=== PATIENT | male | born 1950 | race Caucasian/White ===

== ENCOUNTER 2019-04-24 18:20 | Inpatient (IN) | payer OTHER, MEDICARE ==
[2019-04-24 18:55] LABS: HEMATOCRIT 31.7 % (37.9-51.0); HEMOGLOBIN 11.4 g/dL (13.5-17.0); MEAN CORPUSCULAR HEMOGLOBIN 31.8 pg (27.0-33.4); MEAN CORPUSCULAR VOLUME 88 fl (80-97); PLATELET COUNT 293 10^3/uL (150-450); RED BLOOD COUNT 3.59 10^6/uL (4.35-5.55); RED CELL DISTRIBUTION WIDTH 13.3 % (11.5-14.0); WHITE BLOOD COUNT 9.1 10^3/uL (4.0-10.5)
[2019-04-24] MEDS ORDERED: NORMAL SALINE 1000 ML 1,000 ML IV ONE (18:56)
--- NOTE | 2019-04-24 19:10 | ER Document Report ---
ED General - General Chief Complaint: Abdominal Pain >50 Stated Complaint: ABDOMINAL PAIN Time Seen by Provider: 04/24/19 18:25 Notes: Patient is a 68-year-old male who denies chronic medical problems, no prior abdominal surgical history, presents complaining of 4 days without having a bowel movement with increasing abdominal distention and discomfort. Patient states that he had some nausea and nonbilious vomiting most recently this mornin g but has been able to tolerate fluid intake in between those episodes of vomiting. Describes his abdominal discomfort as being a fullness, cramping, diffuse discomfort to the entirety of his abdomen. States that it started gradually and has been progressively worsening since onset. Nothing seems to improve or worsen this pain or his symptoms of nausea and vomiting. He denies any history of similar symptoms in the past. States that he usually has a bowel movement every day. He has not had fever or constitutional symptoms. He has not seen his primary care physician regarding today's concerns. - Related Data Allergies/Adverse Reactions: No Known Allergies Allergy (Verified 04/24/19 18:33) Past Medical History - General Information source: Patient - Social History Smoking Status: Never Smoker Frequency of alcohol use: None Drug Abuse: None Lives with: Alone Family History: Reviewed & Not Pertinent Review of Systems - Review of Systems Notes: Constitutional: Negative for fever. HENT: Negative for sore throat. Eyes: Negative for visual changes. Cardiovascular: Negative for chest pain. Respiratory: Negative for shortness of breath. Gastrointestinal: Positive for abdominal pain, vomiting, absence of bowel movement Genitourinary: Negative for dysuria. Musculoskeletal: Negative for back pain. Skin: Negative for rash. Neurological: Negative for headaches, weakness or numbness. 10 point ROS negative except as marked above and in HPI. Physical Exam - Vital signs Vitals: Temp Pulse Resp BP Pulse Ox 98.9 F 80 18 159/69 H 94 04/24/19 18:21 04/24/19 18:21 04/24/19 18:21 04/24/19 18:21 04/24/19 18:21 Interpretation: Hypertensive Notes: PHYSICAL EXAMINATION: GENERAL: Appears moderately uncomfortable but in no acute distress HEAD: Atraumatic, normocephalic. EYES: Pupils equal round and reactive to light, extraocular movements intact, sclera anicteric, conjunctiva are normal. ENT: nares patent, oropharynx clear without exudates. Moderately dry mucous membranes. NECK: Normal range of motion, supple without lymphadenopathy LUNGS: Breath sounds clear to auscultation bilaterally and equal. No wheezes rales or rhonchi. HEART: Regular rate and rhythm without murmurs ABDOMEN: Distended, protuberant abdomen with diffuse tympany. Mild diffuse tenderness on palpation but no localization to any one quadrant. No rebound or guarding. EXTREMITIES: Normal range of motion, no pitting or edema. No cyanosis. NEUROLOGICAL: No focal neurological deficits. Moves all extremities spontaneously and on command. PSYCH: Normal mood, normal affect. SKIN: Warm, Dry, normal turgor, no rashes or lesions noted. Course - Re-evaluation Re-evalutation: 04/24/19 19:09 Presentation is concerning for possible small bowel obstruction, ileus, versus constipation. The patient has tympany on abdominal exam with some global discomfort on palpation although no areas of rigidity, rebound or guarding. The patient has had some nausea and vomiting although apparently this is not bilious or feculent. Has been able to tolerate oral intake between these episodes of abdominal distention. Patient has no reason to have a bowel obstruction as he has no prior abdominal surgical history, has no visible hernia on exam. This could be an ileus pattern secondary to severe constipation versus isolated constipation. Patient has no fever, vitals are within normal's with exception of hypertension. Very low clinical suspicion for more serious pathology such as appendicitis, ileus, and do not clinically suspect atypical presentation of ACS. Will obtain abdominal x-ray 2 views, labs, provide IV hydration and reassess. 04/24/19 20:36 Patient's laboratories show severe hyponatremia, hypokalemia, lipase elevation. Abdominal two-view x-ray does demonstrate findings consistent with bowel obstruction, possible free air. Patient's abdominal exam is unchanged on repeat assessment. CT scan of the abdomen and pelvis is pending. The patient is receiving potassium repletion as well as magnesium repletion as his potassium is critically low at 2.3. EKG is pending. Will not provide any additional fluids as I suspect that the patient's hyponatremia is likely is delusional from heavy beer consumption. The patient initially stated to me that he had only drank 1 beer daily although I suspect that this is quite untrue given his labs. Will continue to monitor very closely. Patient is in guarded condition. 04/25/19 00:55 Has been reassessed. Remains neurologically intact. No seizures. NG tube has been placed. Patient's CT scan does show prominent bowel obstruction. I have discussed this case with Dr. Baldwin as well as Dr. Acuna given that the patient has both medical as well as surgical concerns. Patient will be admitted to the ICU under Dr. Acuna's care with Dr. Baldwin consulting. - Vital Signs Vital signs: Temp Pulse Resp BP Pulse Ox 98.4 F 82 20 164/63 H 96 04/25/19 03:48 04/25/19 03:48 04/25/19 03:48 04/25/19 03:48 04/25/19 03:48 - Laboratory Result Diagrams: 04/24/19 18:40 04/25/19 01:45 Laboratory results interpreted by me: 04/24/19 04/24/19 04/24/19 18:40 18:40 18:40 RBC 3.59 L Hgb 11.4 L Hct 31.7 L Seg Neuts % (Manual) 89 H Lymphocytes % (Manual) 4 L Abs Lymphs (Manual) 0.4 L VBG pH Sodium 119.9 L* Potassium 2.3 L* Chloride 71 L Carbon Dioxide 31 H Glucose 113 H Magnesium 1.1 L* Total Bilirubin 1.6 H Direct Bilirubin 0.8 H AST 74 H Lipase 2260.9 H 04/24/19 21:00 RBC Hgb Hct Seg Neuts % (Manual) Lymphocytes % (Manual) Abs Lymphs (Manual) VBG pH 7.46 H Sodium Potassium Chloride Carbon Dioxide Glucose Magnesium Total Bilirubin Direct Bilirubin AST Lipase - Diagnostic Test Radiology reviewed: Reports reviewed - EKG Interpretation by Me Additional EKG results interpreted by me: 04/25/19 04:24 Sinus rhythm, rate 74. No ST elevations or depressions. QTC is 386. Critical Care Note - Critical Care Note Total time excluding time spent on procedures (mins): 36 Comments: Critical care time spent obtaining history from patient or surrogate, di scussions with consultants, development of treatment plan with patient or surrogate, evaluation of patient's response to treatment, examination of patient, ordering and performing treatments and interventions, ordering and review of laboratory studies, re-evaluation of patient's condition, ordering and review of radiographic studies and review of old charts Discharge - Discharge Clinical Impression: Hyponatremia, Hypokalemia, Hypomagnesemia, Small bowel obstruction Condition: Fair Disposition: ADMITTED INPATIENT Admitting Provider: Armand (Hospitalist) Unit Admitted: ICU
[2019-04-24 19:15] LABS: ALANINE AMINOTRANSFERASE 34 U/L (21-72); ALBUMIN 4.3 g/dL (3.5-5.0); ALKALINE PHOSPHATASE 39 U/L (38-126); ANION GAP 18 (5-19); ASPARTATE AMINO TRANSFERASE 74 U/L (17-59); BILIRUBIN,DIRECT 0.8 mg/dL (0.0-0.4); BILIRUBIN,TOTAL 1.6 mg/dL (0.2-1.3); BLOOD UREA NITROGEN 16 mg/dL (7-20); CALCIUM 8.7 mg/dL (8.4-10.2); CARBON DIOXIDE 31 mmol/L (22-30); CHLORIDE 71 mmol/L (98-107); GLUCOSE 113 mg/dL (75-110); TOTAL PROTEIN 6.9 g/dL (6.3-8.2)
[2019-04-24 19:24] LABS: LIPASE 2260.9 U/L (23-300)
[2019-04-24 19:27] LABS: ABSOLUTE LYMPHOCYTES# (MANUAL) 0.4 10^3/uL (0.5-4.7); ABSOLUTE MONOCYTES # (MANUAL) 0.6 10^3/uL (0.1-1.4); ABSOLUTE NEUTROPHILS# (MANUAL) 8.1 10^3/uL (1.7-8.2); BASOPHILS % (MANUAL) 0 % (0-2); EOSINOPHILS % (MANUAL) 0 % (0-6); LYMPHOCYTES % (MANUAL) 4 % (13-45); MONOCYTES % (MANUAL) 7 % (3-13); SEGMENTED NEUTROPHILS % (MAN) 89 % (42-78); TOTAL CELLS COUNTED 100
[2019-04-24 19:28] LABS: PLATELET COMMENT ADEQUATE; POTASSIUM 2.3 mmol/L (3.6-5.0); SODIUM 119.9 mmol/L (137-145)
[2019-04-24 19:29] LABS: STOMATOCYTES SLIGHT
--- NOTE | 2019-04-24 20:04 | RADIOLOGY REPORT (SQ) ---
EXAM DESCRIPTION: ABDOMEN 2 VIEWS COMPLETED DATE/TIME: 04/24/2019 7:48 pm REASON FOR STUDY: eval obstruction COMPARISON: None. NUMBER OF VIEWS: Two views. TECHNIQUE: Supine and erect/decubitus radiographic images of the abdomen acquired. LIMITATIONS: None. FINDINGS: FREE AIR: There is a subtle continuous diaphragm sign concerning for pneumoperitoneum. LUNG BASES: Clear. BOWEL GAS PATTERN: Diffusely distended small bowel, without definite colonic gas identified. The lar gest loops measure 4.7 cm in caliber. CALCIFICATIONS: No suspicious calcifications. SOFT TISSUES: No gross mass or suggestion of organomegaly. HARDWARE: None in the abdomen. BONES: No acute fracture. No worrisome bone lesions. OTHER: No other significant finding. IMPRESSION: 1. Diffusely distended small bowel, without definite colonic gas identified. The larges t loops measure 4.7 cm in caliber. Findings are consistent with stated clinical concern for obstruct ion. 2. There is a subtle continuous diaphragm sign on erect radiographs concerning for pneumoperitoneum. Consider CT to evaluate if there is no explanation for intra-abdominal free air such as recent surg viktoria. TECHNICAL DOCUMENTATION: JOB ID: [id number] [employer]- All Rights Reserved Reading location - IP/workstation name: [email or web address]
[2019-04-24] MEDS ORDERED: METOCLOPRAMIDE HCL INJ/PF 10 MG/2 ML SDV IV ONE (20:10)
[2019-04-24] MEDS: POTASSI CL 20 MEQ/50 ML RIDER 20 MEQ/50 ML RTUPB IV SCH ×2 (20:58→22:31)
[2019-04-24] MEDS: MAGNESIUM SULFATE/D5W 1 GM/100 ML RTUPB IV SCH ×2 (21:06→22:36)
[2019-04-24 21:26] LABS: ALCOHOL < 10 mg/dL (NONE DETECTED)
[2019-04-24 21:45] LABS: VENOUS BLOOD BASE EXCESS 6.1 mmol/L; VENOUS BLOOD HCO3 30.5 mmol/L (20-32); VENOUS BLOOD PCO2 43.8 mmHg (35-63); VENOUS BLOOD PH 7.46 (7.30-7.42)
--- NOTE | 2019-04-24 23:40 | RADIOLOGY REPORT (SQ) ---
EXAM DESCRIPTION: CT ABDOMEN PELVIS WITH IV CONTRAST COMPLETED DATE/TME: 04/24/2019 00:00 CLINICAL HISTORY: Diffuse abdominal pain. Distended bowel on comparison radiograph. COMPARISON: 04/24/2019 TECHNIQUE: CT of the abdomen and pelvis performed following IV administration of 77 mL of Omnipaque 350. DLP: 1048.3 mGycm FINDINGS: Lung Bases: The visualized lung bases are clear. Centrilobular emphysematous changes. Coronary artery atherosclerosis. Bones: Generative endplate spondylosis throughout the visualized thoracic and lumbar spine. Abdomen: Liver: The liver has normal size and density. No intrahepatic mass or biliary dilatation. Gallbladder: No calcified gallstones. Spleen, Pancreas, and Adrenal Glands: The spleen, pancreas, and adrenal glands are unremarkable. Kidneys: The kidneys have normal size and contour without evidence of solid mass or hydronephrosis. Vasculature: Aortoiliac atherosclerosis. IVC is unremarkable. The portal vein is patent. The proximal visceral and renal arteries are patent. Stomach: The stomach is distended. Other: No free intraperitoneal air. Small amount of free fluid. Pelvis: Bladder: Urinary bladder is unremarkable. Bowel: Diffuse dilation of the small bowel with small bowel wall thickening. The distal small bowel is decompressed. The transition point is not well identified however it is likely right mid abdominal region. Appendix: Normal appendix. Pelvis: Prostate is not enlarged. IMPRESSION: 1. Findings compatible with mechanical small bowel obstruction. The transition point is not definitely identified however it likely in the right mid abdomen. 2. Small amount of free fluid. 3. Centrilobular emphysematous change in the visualized lung bases. This exam was performed according to our departmental dose-optimization program, which includes automated exposure control, adjustment of the mA and/or kV according to patient size and/or use of iterative reconstruction technique.
[2019-04-24] MEDS ORDERED: MIDAZOLAM 2 MG/2 ML INJ IV ONE (23:52)
[2019-04-24] MEDS ORDERED: LIDOCAINE 1% INJ-PF (10 MG/ML) 30 ML SDV NEB ONE (23:53)
[2019-04-25] MEDS: POTASSI CL 20 MEQ/50 ML RIDER 20 MEQ/50 ML RTUPB IV SCH ×7 (00:07→20:36)
[2019-04-25] MEDS ORDERED: MAGNESIUM SULFATE/D5W 1 GM/100 ML RTUPB IV ONE (00:43)
[2019-04-25] MEDS ORDERED: THIAMINE HCL INJ 200 MG/2 ML VIAL IV PRN (00:46)
[2019-04-25] MEDS ORDERED: FOLIC ACID INJ 5 MG/1 ML 10 ML VIAL IV PRN (00:47)
[2019-04-25] MEDS ORDERED: THIAMINE HCL 100 MG, FOLIC ACID 1 MG in NORMAL SALINE 250 ML IV SCH (01:00)
--- NOTE | 2019-04-25 01:11 | PDOC CONSULTATION ---
Consultation Consult Date: 04/25/19 Attending physician:: HAILEY BARCENAS Provider Consulted: ELROY ROWE Consult reason:: Partial small bowel obstruction History of Present Illness Admission Date/PCP: [facility] History of Present Illness: ARDEN CAMP is a 68 year old male Presents emergency department via ground rescue complaining of 4-day history of abdominal pain, nausea vomiting bilious material, decreased urine output and decreased stool. Patient drinks alcohol daily. He receives his medical care from the [facility]. He is disabled due to PTSD. He is never had abdominal surgery or any other operative interventions. He was seen in the emergency department where he was found to have distended abdomen and profoundly abnormal electrolytes. CT scan of the abdomen and pelvis showed findings consistent with a small bowel obstruction but no transition point. Nasogastric tube was inserted, and during the process the patient vomited several liters of gastric contents, nonbloody. Patient was seen by Dr. Larry Acuna the hospitalist, and admitted to the hospitalist service. Surgery was consulted. Patient's last colonoscopy was in the last 2 years, no pathologic findings. He states he feels better after nasogastric decompression. Past Medical History Past Medical History: Hypertension, alcoholism, COPD, smoking abuse, PTSD, depression Cardiac Medical History: Reports: Hypertension Pulmonary Medical History: Reports: Chronic Obstructive Pulmonary Disease (COPD) Past Surgical History Past Surgical History: Reports: None Social History Lives with: Alone Smoking Status: Never Smoker Frequency of Alcohol Use: Heavy Family History Family History: Reviewed & Not Pertinent Parental Family History Reviewed: Yes Children Family History Reviewed: Yes Sibling(s) Family History Reviewed.: Yes Medication/Allergy Allergies/Adverse Reactions: No Known Allergies Allergy (Verified 04/24/19 18:33) Review of Systems Constitutional: PRESENT: as per HPI Ears: ABSENT: hearing changes Cardiovascular: ABSENT: chest pain, dyspnea on exertion, edema, orthropnea, palpitations Genitourinary: PRESENT: as per HPI Musculoskeletal: PRESENT: back pain Physical Exam Vital Signs: Temp Pulse Resp BP Pulse Ox 98.9 F 80 19 171/77 H 92 04/24/19 18:21 04/24/19 18:21 04/24/19 23:13 04/24/19 23:13 04/24/19 23:13 Intake & Output 04/23/19 04/24/19 04/25/19 06:59 06:59 06:59 Intake Total 1200 Balance 1200 Weight 67.4 kg General appearance: PRESENT: disheveled Head exam: PRESENT: normocephalic Eye exam: PRESENT: EOMI Mouth exam: PRESENT: dry mucosa Neck exam: PRESENT: full ROM Respiratory exam: PRESENT: tachypnea Cardiovascular exam: PRESENT: RRR Pulses: PRESENT: normal carotid pulses, normal radial pulses GI/Abdominal exam: PRESENT: other - Distended, mildly tympanitic, no rigidity no guarding no hernias Rectal exam: PRESENT: deferred Extremities exam: PRESENT: full ROM Musculoskeletal exam: PRESENT: full ROM Neurological exam: PRESENT: alert, awake, oriented to person, oriented to place, oriented to time, oriented to situation Psychiatric exam: PRESENT: anxious, appropriate affect Results Laboratory Results: 04/24/19 18:40 04/24/19 18:40 04/24/19 04/24/19 04/24/19 18:40 18:40 18:40 WBC 9.1 RBC 3.59 L Hgb 11.4 L Hct 31.7 L MCV 88 MCH 31.8 MCHC 36.0 RDW 13.3 Plt Count 293 Seg Neutrophils % Not Reportable Lymphocytes % Not Reportable Monocytes % Not Reportable Eosinophils % Not Reportable Basophils % Not Reportable Absolute Neutrophils Not Reportable Absolute Lymphocytes Not Reportable Absolute Monocytes Not Reportable Absolute Eosinophils Not Reportable Absolute Basophils Not Reportable VBG pH VBG pCO2 VBG HCO3 VBG Base Excess Sodium 119.9 L* Potassium 2.3 L* Chloride 71 L Carbon Dioxide 31 H Anion Gap 18 BUN 16 Creatinine 0.94 Est GFR ( Amer) > 60 Est GFR (Non-Af Amer) > 60 Glucose 113 H Lactic Acid Calcium 8.7 Magnesium 1.1 L* Total Bilirubin 1.6 H AST 74 H ALT 34 Alkaline Phosphatase 39 Total Protein 6.9 Albumin 4.3 Lipase 2260.9 H 04/24/19 04/24/19 21:00 21:00 WBC RBC Hgb Hct MCV MCH MCHC RDW Plt Count Seg Neutrophils % Lymphocytes % Monocytes % Eosinophils % Basophils % Absolute Neutrophils Absolute Lymphocytes Absolute Monocytes Absolute Eosinophils Absolute Basophils VBG pH 7.46 H VBG pCO2 43.8 VBG HCO3 30.5 VBG Base Excess 6.1 Sodium Potassium Chloride Carbon Dioxide Anion Gap BUN Creatinine Est GFR ( Amer) Est GFR (Non-Af Amer) Glucose Lactic Acid 0.9 Calcium Magnesium Total Bilirubin AST ALT Alkaline Phosphatase Total Protein Albumin Lipase 04/24/19 18:40 Troponin I 0.023 Impressions: Abdomen/Pelvis CT 04/24/19 00:00 IMPRESSION: 1. Findings compatible with mechanical small bowel obstruction. The transition point is not definitely identified however it likely in the right mid abdomen. 2. Small amount of free fluid. 3. Centrilobular emphysematous change in the visualized lung bases. This exam was performed according to our departmental dose-optimization program, which includes automated exposure control, adjustment of the mA and/or kV according to patient size and/or use of iterative reconstruction technique. Abdomen X-Ray 04/24/19 18:55 IMPRESSION: 1. Diffusely distended small bowel, without definite colonic gas identified. The largest loops measure 4.7 cm in caliber. Findings are consistent with stated clinical concern for obstruction. 2. There is a subtle continuous diaphragm sign on erect radiographs concerning for pneumoperitoneum. Consider CT to evaluate if there is no explanation for intra-abdominal free air such as recent surgery. Assessment & Plan - Diagnosis (1) Alcoholism Is this a current diagnosis for this admission?: Yes Plan: Impression: Binge drinking, with resultant dehydration, multiple metabolic and electrolyte abnormalities resulting in ileus; CT scan reviewed; seriously doubt mechanical small bowel obstruction in the absence of previous abdominal surgery, and peritoneal signs. Recommendations: 1. Agree with admission to hospitalist service, correction of electrolyte abnormalities and dehydration 2. We will follow in consultation with you; no clinical indication for surgical intervention at this time. (2) PTSD (post-traumatic stress disorder) Is this a current diagnosis for this admission?: Yes (3) Hypokalemia Is this a current diagnosis for this admission?: Yes (4) Hypomagnesemia Is this a current diagnosis for this admission?: Yes (5) Hyponatremia Is this a current diagnosis for this admission?: Yes (6) Small bowel obstruction Is this a current diagnosis for this admission?: Yes - Time Time Spent: 30 to 50 Minutes Smoking Cessation Education: over 10 minutes Medications reviewed and adjusted accordingly: Yes Anticipated discharge: Home - Inpatient Certification Based on my medical assessment, after consideration of the patient's comorbidi ties, presenting symptoms, or acuity I expect that the services needed warrant INPATIENT care.: Yes I certify that my determination is in accordance with my understanding of Myrtle freeman's requirements for reasonable and necessary INPATIENT services [42 CFR 412.3e].: Yes Medical Necessity: Significant Comorbidiites Make Outpatient Treatment Too Risky, Need For IV Fluids, Need for IV Antibiotics
--- NOTE | 2019-04-25 01:16 | PDOC H&P ---
History of Present Illness Admission Date/PCP: [facility] Patient complains of: Abdominal pain distention History of Present Illness: ARDEN CAMP is a 68 year old male with a past medical history of hypertension, COPD, chronic hyponatremia and alcohol dependence. Patient presents with approximately 2 weeks of diarrhea prompting him to take several doses of Imodium followed by 48 hours of anorexia, abdominal distention and pain developing nausea and vomiting of green-yellow fluid. Patient denies previous episode or recent change in medications. In the emergency room he is found to have CT concerning for small bowel obstruction, hyponatremia of 119, hypomagnesemia 1.1 and hypokalemia of 2.3. An NG tube was placed with green-yellow fluid aspirating, magnesium and potassium repletion as ordered and is referred to the hospitalist for admission. Past Medical History Cardiac Medical History: Reports: Hypertension Pulmonary Medical History: Reports: Chronic Obstructive Pulmonary Disease (COPD) Past Surgical History Past Surgical History: Reports: None Social History Information Source: Patient Lives with: Alone Smoking Status: Never Smoker Frequency of Alcohol Use: Heavy Drugs: None - Advance Directive Resuscitation Status: Full Code Family History Family History: COPD, Hypertension, Other - No known GI malignancy Parental Family History Reviewed: Yes Children Family History Reviewed: Yes Sibling(s) Family History Reviewed.: Yes Medication/Allergy Allergies/Adverse Reactions: No Known Allergies Allergy (Verified 04/24/19 18:33) Review of Systems Constitutional: PRESENT: as per HPI, anorexia, fatigue. ABSENT: chills, fever(s), headache(s), weight gain, weight loss Eyes: ABSENT: visual disturbances Ears: ABSENT: hearing changes Cardiovascular: ABSENT: chest pain, dyspnea on exertion, edema, orthropnea, palpitations Respiratory: ABSENT: cough, hemoptysis Gastrointestinal: PRESENT: as per HPI, abdominal pain, bloating, diarrhea, nausea, vomiting. ABSENT: coffee ground emesis, constipation, hematemesis, hematochezia Genitourinary: ABSENT: dysuria, hematuria Musculoskeletal: ABSENT: joint swelling Integumentary: ABSENT: rash, wounds Neurological: ABSENT: abnormal gait, abnormal speech, confusion, dizziness, focal weakness, syncope Psychiatric: ABSENT: anxiety, depression, homidical ideation, suicidal ideation Endocrine: ABSENT: cold intolerance, heat intolerance, polydipsia, polyuria Hematologic/Lymphatic: ABSENT: easy bleeding, easy bruising Physical Exam Vital Signs: Temp Pulse Resp BP Pulse Ox 98.9 F 80 19 171/77 H 92 04/24/19 18:21 04/24/19 18:21 04/24/19 23:13 04/24/19 23:13 04/24/19 23:13 Intake & Output 04/23/19 04/24/19 04/25/19 11:59 11:59 11:59 Intake Total 1200 Balance 1200 Weight 67.4 kg General appearance: PRESENT: cooperative, mild distress, well-developed, well- nourished. ABSENT: disheveled Head exam: PRESENT: atraumatic, normocephalic Eye exam: PRESENT: conjunctiva pink, EOMI, PERRLA. ABSENT: scleral icterus Ear exam: PRESENT: normal external ear exam Mouth exam: PRESENT: moist, tongue midline Neck exam: ABSENT: carotid bruit, JVD, lymphadenopathy, thyromegaly Respiratory exam: PRESENT: clear to auscultation mark. ABSENT: rales, rhonchi, wheezes Cardiovascular exam: PRESENT: RRR. ABSENT: diastolic murmur, rubs, systolic murmur Pulses: PRESENT: normal dorsalis pedis pul Vascular exam: PRESENT: normal capillary refill GI/Abdominal exam: PRESENT: diminished bowel sounds, distended, firm, hypoactive bowel sounds, soft, tenderness. ABSENT: guarding, mass Rectal exam: PRESENT: deferred Extremities exam: PRESENT: full ROM. ABSENT: calf tenderness, clubbing, pedal edema Neurological exam: PRESENT: alert, awake, oriented to person, oriented to place, oriented to time, oriented to situation, CN II-XII grossly intact. ABSENT: motor sensory deficit Psychiatric exam: PRESENT: appropriate affect, normal mood. ABSENT: homicidal ideation, suicidal ideation Skin exam: PRESENT: dry, intact, warm. ABSENT: cyanosis, rash Results Laboratory Results: 04/24/19 18:40 04/24/19 18:40 04/24/19 04/24/19 04/24/19 18:40 18:40 18:40 WBC 9.1 RBC 3.59 L Hgb 11.4 L Hct 31.7 L MCV 88 MCH 31.8 MCHC 36.0 RDW 13.3 Plt Count 293 Seg Neutrophils % Not Reportable Lymphocytes % Not Reportable Monocytes % Not Reportable Eosinophils % Not Reportable Basophils % Not Reportable Absolute Neutrophils Not Reportable Absolute Lymphocytes Not Reportable Absolute Monocytes Not Reportable Absolute Eosinophils Not Reportable Absolute Basophils Not Reportable VBG pH VBG pCO2 VBG HCO3 VBG Base Excess Sodium 119.9 L* Potassium 2.3 L* Chloride 71 L Carbon Dioxide 31 H Anion Gap 18 BUN 16 Creatinine 0.94 Est GFR ( Amer) > 60 Est GFR (Non-Af Amer) > 60 Glucose 113 H Lactic Acid Calcium 8.7 Magnesium 1.1 L* Total Bilirubin 1.6 H AST 74 H ALT 34 Alkaline Phosphatase 39 Total Protein 6.9 Albumin 4.3 Lipase 2260.9 H 04/24/19 04/24/19 21:00 21:00 WBC RBC Hgb Hct MCV MCH MCHC RDW Plt Count Seg Neutrophils % Lymphocytes % Monocytes % Eosinophils % Basophils % Absolute Neutrophils Absolute Lymphocytes Absolute Monocytes Absolute Eosinophils Absolute Basophils VBG pH 7.46 H VBG pCO2 43.8 VBG HCO3 30.5 VBG Base Excess 6.1 Sodium Potassium Chloride Carbon Dioxide Anion Gap BUN Creatinine Est GFR ( Amer) Est GFR (Non-Af Amer) Glucose Lactic Acid 0.9 Calcium Magnesium Total Bilirubin AST ALT Alkaline Phosphatase Total Protein Albumin Lipase 04/24/19 18:40 Troponin I 0.023 Impressions: Abdomen/Pelvis CT 04/24/19 00:00 IMPRESSION: 1. Findings compatible with mechanical small bowel obstruction. The transition point is not definitely identified however it likely in the right mid abdomen. 2. Small amount of free fluid. 3. Centrilobular emphysematous change in the visualized lung bases. This exam was performed according to our departmental dose-optimization program, which includes automated exposure control, adjustment of the mA and/or kV according to patient size and/or use of iterative reconstruction technique. Abdomen X-Ray 04/24/19 18:55 IMPRESSION: 1. Diffusely distended small bowel, without definite colonic gas identified. The largest loops measure 4.7 cm in caliber. Findings are consistent with stated clinical concern for obstruction. 2. There is a subtle continuous diaphragm sign on erect radiographs concerning for pneumoperitoneum. Consider CT to evaluate if there is no explanation for intra-abdominal free air such as recent surgery. Assessment and Plan - Diagnosis (1) Hyponatremia Is this a current diagnosis for this admission?: Yes Plan: Admits history of known chronic hyponatremia of unknown cause, appears e uvolemic, follow-up urinalysis, osmolarity. And chemistry every 6 hours. (2) Hypokalemia Is this a current diagnosis for this admission?: Yes Plan: Likely secondary to diarrhea and vomiting. IV repletion and reevaluation (3) Alcoholism Is this a current diagnosis for this admission?: Yes Plan: Denies history of seizure, blackout, tremor without alcohol and does not carry stigmata of chronic malnutrition or liver disease expected and severe alcoholism that said thiamine, folate, Ativan as needed (4) Hypomagnesemia Is this a current diagnosis for this admission?: Yes Plan: Secondary to diarrhea, repletion and follow-up chemistry (5) Small bowel obstruction Is this a current diagnosis for this admission?: Yes Plan: Electrolyte correction, NG tube decompression, symptomatic management. Follow- up surgical consult and lactic acid - Time Time Spent with patient: 35 or more minutes - Inpatient Certification Medical Necessity: Need Close Monitoring Due to Risk of Patient Decompensation
[2019-04-25] MEDS ORDERED: IPRATROPIUM/ALBUTEROL 0.5-2.5 MG/3 ML AMPUL NEB PRN (01:26)
[2019-04-25] MEDS ORDERED: ACETAMINOPHEN 650 MG SUPP.RECT PR PRN (01:26)
[2019-04-25] MEDS ORDERED: ONDANSETRON HCL INJ/PF 4 MG/2 ML SDV IV PRN (01:26)
[2019-04-25] MEDS ORDERED: PHARMACY COMMUNICATION ORDER MC NR (01:30)
[2019-04-25] MEDS ORDERED: NORMAL SALINE 1000 ML 1,000 ML IV SCH (01:30)
[2019-04-25 02:17] LABS: ANION GAP 15 (5-19); BLOOD UREA NITROGEN 15 mg/dL (7-20); CALCIUM 7.9 mg/dL (8.4-10.2); CARBON DIOXIDE 31 mmol/L (22-30); CHLORIDE 75 mmol/L (98-107); GLUCOSE 103 mg/dL (75-110)
[2019-04-25 02:20] LABS: POTASSIUM 2.7 mmol/L (3.6-5.0)
[2019-04-25] MEDS ORDERED: POTASSIUM PHOS,M-BASIC-D-BASIC 15 MMOL in NORMAL SALINE 250 ML IV ONE ×2 (02:40→07:00)
--- NOTE | 2019-04-25 02:44 | RADIOLOGY REPORT (SQ) ---
EXAM DESCRIPTION: XR ABDOMEN 1 VIEW (KUB) COMPLETED DATE/TME: 04/25/2019 01:30 CLINICAL HISTORY: 68 years, Male, Check Placement of NG Tube COMPARISON: 04/24/2019 abdomen NUMBER OF VIEWS: 1 TECHNIQUE: Portable upright abdomen LIMITATIONS: None. FINDINGS: Tip of the enteric tube in the stomach. No free air under the hemidiaphragms. Air-filled loops of small bowel are noted. IMPRESSION: Tip of the enteric tube in the stomach copyright 2010 [employer]- All Rights Reserved
[2019-04-25] MEDS: MAGNESIUM SULFATE/D5W 1 GM/100 ML RTUPB IV SCH ×2 (04:40→06:37)
[2019-04-25] MEDS ORDERED: NORMAL SALINE 1000 ML 1,000 ML IV PRN (04:59)
[2019-04-25] MEDS: HYDRALAZINE HCL INJ/PF 20 MG/1 ML SDV IV PRN (05:11)
[2019-04-25] MEDS: HEPARIN SOD (PORCINE) 5,000 UNIT/ML 1 ML SYRINGE SUBCUT SCH ×3 (06:18→21:09)
[2019-04-25 07:15] LABS: APPEARANCE,URINE CLEAR; BILIRUBIN,URINE NEGATIVE (NEGATIVE); COLOR,URINE YELLOW; GLUCOSE, URINE NEGATIVE (NEGATIVE); KETONES,URINE TRACE mg/dL (NEGATIVE); LEUKOCYTE ESTERASE,URINE NEGATIVE (NEGATIVE); NITRITE,URINE NEGATIVE (NEGATIVE); PROTEIN,URINE NEGATIVE (NEGATIVE); URINE SPECIFIC GRAVITY 1.013
[2019-04-25 07:34] LABS: URINE POTASSIUM 42.8 mmol/L (17-99)
--- NOTE | 2019-04-25 07:40 | EKG REPORT ---
SEVERITY:- BORDERLINE ECG - SINUS RHYTHM BORDERLINE T ABNORMALITIES, ANT-LAT LEADS : Confirmed by: Adele Quiroga MD 25-Apr-2019 07:40:01
[2019-04-25 08:24] LABS: HEMATOCRIT 30.5 % (37.9-51.0); HEMOGLOBIN 10.8 g/dL (13.5-17.0); MEAN CORPUSCULAR HEMOGLOBIN 31.6 pg (27.0-33.4); MEAN CORPUSCULAR HGB CONC 35.6 g/dL (32.0-36.0); MEAN CORPUSCULAR VOLUME 89 fl (80-97); RED BLOOD COUNT 3.44 10^6/uL (4.35-5.55); WHITE BLOOD COUNT 11.2 10^3/uL (4.0-10.5)
[2019-04-25] MEDS: IPRATROPIUM/ALBUTEROL 0.5-2.5 MG/3 ML AMPUL NEB SCH ×2 (08:28→20:56)
[2019-04-25 08:41] LABS: ABSOLUTE LYMPHOCYTES# (MANUAL) 0.3 10^3/uL (0.5-4.7); ABSOLUTE MONOCYTES # (MANUAL) 0.7 10^3/uL (0.1-1.4); ABSOLUTE NEUTROPHILS# (MANUAL) 10.2 10^3/uL (1.7-8.2); BAND NEUTROPHILS % (MANUAL) 2 % (3-5); BASOPHILS % (MANUAL) 0 % (0-2); EOSINOPHILS % (MANUAL) 0 % (0-6); LYMPHOCYTES % (MANUAL) 3 % (13-45); MONOCYTES % (MANUAL) 6 % (3-13); SEGMENTED NEUTROPHILS % (MAN) 89 % (42-78); TOTAL CELLS COUNTED 100
[2019-04-25 08:42] LABS: PLATELET CLUMPS PRESENT; POLYCHROMASIA 1+
[2019-04-25 08:43] LABS: PLATELET COMMENT ADEQUATE; PLATELET COUNT 286 10^3/uL (150-450)
[2019-04-25 08:44] LABS: ANION GAP 18 (5-19); BLOOD UREA NITROGEN 13 mg/dL (7-20); CARBON DIOXIDE 25 mmol/L (22-30); CHLORIDE 81 mmol/L (98-107); GLUCOSE 100 mg/dL (75-110); SODIUM 124.4 mmol/L (137-145)
[2019-04-25 08:56] LABS: CALCIUM 6.6 mg/dL (8.4-10.2); POTASSIUM 2.6 mmol/L (3.6-5.0)
--- NOTE | 2019-04-25 10:12 | PDOC PROGRESS REPORT ---
Subjective Progress Note for:: 04/25/19 Subjective:: Denies any abdominal pain. Abdomen still feels distended but much improved from earlier in the admission. Unsure whether he has been passing any gas. Reason For Visit: HYPONATREMIA, HYPOKALEMIA, SBO Physical Exam Vital Signs: Temp Pulse Resp BP Pulse Ox 98.4 F 90 18 164/63 H 92 04/25/19 03:48 04/25/19 08:29 04/25/19 08:29 04/25/19 03:48 04/25/19 08:29 Intake & Output 04/24/19 04/25/19 04/26/19 06:59 06:59 06:59 Intake Total 1551.2 Output Total 2200 Balance -648.8 Weight 67.8 kg General appearance: PRESENT: no acute distress, cooperative Respiratory exam: PRESENT: wheezes Cardiovascular exam: PRESENT: RRR GI/Abdominal exam: PRESENT: other - Soft, mildly distended. Decreased bowel sounds. Minimal tenderness. No peritoneal signs. Results Laboratory Results: 04/25/19 08:00 04/25/19 08:00 04/24/19 04/24/19 04/24/19 18:40 18:40 18:40 WBC 9.1 RBC 3.59 L Hgb 11.4 L Hct 31.7 L MCV 88 MCH 31.8 MCHC 36.0 RDW 13.3 Plt Count 293 Seg Neutrophils % Not Reportable Lymphocytes % Not Reportable Monocytes % Not Reportable Eosinophils % Not Reportable Basophils % Not Reportable Absolute Neutrophils Not Reportable Absolute Lymphocytes Not Reportable Absolute Monocytes Not Reportable Absolute Eosinophils Not Reportable Absolute Basophils Not Reportable VBG pH VBG pCO2 VBG HCO3 VBG Base Excess Sodium 119.9 L* Potassium 2.3 L* Chloride 71 L Carbon Dioxide 31 H Anion Gap 18 BUN 16 Creatinine 0.94 Est GFR ( Amer) > 60 Est GFR (Non-Af Amer) > 60 Glucose 113 H Serum Osmolality Lactic Acid Calcium 8.7 Phosphorus Magnesium 1.1 L* Total Bilirubin 1.6 H AST 74 H ALT 34 Alkaline Phosphatase 39 Total Protein 6.9 Albumin 4.3 Lipase 2260.9 H Urine Color Urine Appearance Urine pH Ur Specific [place] Urine Protein Urine Glucose (UA) Urine Ketones Urine Blood Urine Nitrite Ur Leukocyte Esterase Urine WBC (Auto) Urine RBC (Auto) Urine Osmolality 04/24/19 04/24/19 04/24/19 21:00 21:00 21:29 WBC RBC Hgb Hct MCV MCH MCHC RDW Plt Count Seg Neutrophils % Lymphocytes % Monocytes % Eosinophils % Basophils % Absolute Neutrophils Absolute Lymphocytes Absolute Monocytes Absolute Eosinophils Absolute Basophils VBG pH 7.46 H VBG pCO2 43.8 VBG HCO3 30.5 VBG Base Excess 6.1 Sodium Potassium Chloride Carbon Dioxide Anion Gap BUN Creatinine Est GFR ( Amer) Est GFR (Non-Af Amer) Glucose Serum Osmolality Lactic Acid 0.9 Calcium Phosphorus Magnesium Total Bilirubin AST ALT Alkaline Phosphatase Total Protein Albumin Lipase Urine Color Urine Appearance Urine pH Ur Specific [place] Urine Protein Urine Glucose (UA) Urine Ketones Urine Blood Urine Nitrite Ur Leukocyte Esterase Urine WBC (Auto) Urine RBC (Auto) Urine Osmolality 417 04/24/19 04/25/19 04/25/19 21:29 01:45 01:45 WBC RBC Hgb Hct MCV MCH MCHC RDW Plt Count Seg Neutrophils % Lymphocytes % Monocytes % Eosinophils % Basophils % Absolute Neutrophils Absolute Lymphocytes Absolute Monocytes Absolute Eosinophils Absolute Basophils VBG pH VBG pCO2 VBG HCO3 VBG Base Excess Sodium 121.0 L Potassium 2.7 L* Chloride 75 L Carbon Dioxide 31 H Anion Gap 15 BUN 15 Creatinine 0.88 Est GFR ( Amer) > 60 Est GFR (Non-Af Amer) > 60 Glucose 103 Serum Osmolality Lactic Acid 0.7 Calcium 7.9 L Phosphorus Magnesium Total Bilirubin AST ALT Alkaline Phosphatase Total Protein Albumin Lipase Urine Color YELLOW Urine Appearance CLEAR Urine pH 6.0 Ur Specific [place] 1.013 Urine Protein NEGATIVE Urine Glucose (UA) NEGATIVE Urine Ketones TRACE H Urine Blood SMALL H Urine Nitrite NEGATIVE Ur Leukocyte Esterase NEGATIVE Urine WBC (Auto) 0 Urine RBC (Auto) 2 Urine Osmolality 04/25/19 04/25/19 04/25/19 01:45 01:45 08:00 WBC RBC Hgb Hct MCV MCH MCHC RDW Plt Count Seg Neutrophils % Lymphocytes % Monocytes % Eosinophils % Basophils % Absolute Neutrophils Absolute Lymphocytes Absolute Monocytes Absolute Eosinophils Absolute Basophils VBG pH VBG pCO2 VBG HCO3 VBG Base Excess Sodium 124.4 L Potassium 2.6 L* Chloride 81 L Carbon Dioxide 25 Anion Gap 18 BUN 13 Creatinine 0.61 Est GFR ( Amer) > 60 Est GFR (Non-Af Amer) > 60 Glucose 100 Serum Osmolality 250 L Lactic Acid Calcium 6.6 L* Phosphorus 1.9 L Magnesium Total Bilirubin AST ALT Alkaline Phosphatase Total Protein Albumin Lipase Urine Color Urine Appearance Urine pH Ur Specific [place] Urine Protein Urine Glucose (UA) Urine Ketones Urine Blood Urine Nitrite Ur Leukocyte Esterase Urine WBC (Auto) Urine RBC (Auto) Urine Osmolality 04/25/19 04/25/19 04/25/19 08:00 08:00 08:00 WBC 11.2 H RBC 3.44 L Hgb 10.8 L Hct 30.5 L MCV 89 MCH 31.6 MCHC 35.6 RDW 13.0 Plt Count 286 Seg Neutrophils % Not Reportable Lymphocytes % Not Reportable Monocytes % Not Reportable Eosinophils % Not Reportable Basophils % Not Reportable Absolute Neutrophils Not Reportable Absolute Lymphocytes Not Reportable Absolute Monocytes Not Reportable Absolute Eosinophils Not Reportable Absolute Basophils Not Reportable VBG pH VBG pCO2 VBG HCO3 VBG Base Excess Sodium Potassium Chloride Carbon Dioxide Anion Gap BUN Creatinine Est GFR ( Amer) Est GFR (Non-Af Amer) Glucose Serum Osmolality Lactic Acid 0.7 Calcium Phosphorus Magnesium 2.1 D Total Bilirubin AST ALT Alkaline Phosphatase Total Protein Albumin Lipase Urine Color Urine Appearance Urine pH Ur Specific [place] Urine Protein Urine Glucose (UA) Urine Ketones Urine Blood Urine Nitrite Ur Leukocyte Esterase Urine WBC (Auto) Urine RBC (Auto) Urine Osmolality 04/24/19 18:40 Troponin I 0.023 Impressions: Abdomen/Pelvis CT 04/24/19 00:00 IMPRESSION: 1. Findings compatible with mechanical small bowel obstruction. The transition point is not definitely identified however it likely in the right mid abdomen. 2. Small amount of free fluid. 3. Centrilobular emphysematous change in the visualized lung bases. This exam was performed according to our departmental dose-optimization program, which includes automated exposure control, adjustment of the mA and/or kV according to patient size and/or use of iterative reconstruction technique. Abdomen X-Ray 04/24/19 18:55 IMPRESSION: 1. Diffusely distended small bowel, without definite colonic gas identified. The largest loops measure 4.7 cm in caliber. Findings are consistent with stated clinical concern for obstruction. 2. There is a subtle continuous diaphragm sign on erect radiographs concerning for pneumoperitoneum. Consider CT to evaluate if there is no explanation for intra-abdominal free air such as recent surgery. KUB X-Ray 04/25/19 01:30 IMPRESSION: Tip of the enteric tube in the stomach copyright 2011 [employer]- All Rights Reserved Assessment & Plan - Diagnosis (1) Ileus Is this a current diagnosis for this admission?: Yes Plan: Secondary to metabolic derangement. Defer electrolyte correction and fluid correction to hospitalist service. We will continue to follow make sure were not missing a partial small bowel obstruction. Continue NG decompression.
[2019-04-25 12:02] LABS: ANION GAP 16 (5-19); BLOOD UREA NITROGEN 12 mg/dL (7-20); CALCIUM 7.3 mg/dL (8.4-10.2); CARBON DIOXIDE 27 mmol/L (22-30); CHLORIDE 83 mmol/L (98-107); GLUCOSE 92 mg/dL (75-110); PHOSPHORUS 1.9 mg/dL (2.5-4.5); SODIUM 125.9 mmol/L (137-145)
[2019-04-25 12:16] LABS: POTASSIUM 2.3 mmol/L (3.6-5.0)
[2019-04-25] MEDS ORDERED: DEXTROSE 50%-WATER 25 GM/50 ML DISP.SYRIN IV PRN ×2 (12:57)
[2019-04-25] MEDS ORDERED: GLUCAGON,HUMAN RECOMB 1 MG INJ SUBCUT PRN (12:57)
[2019-04-25] MEDS ORDERED: DEXTROSE 40% GEL 15 GM TUBE PO PRN ×2 (12:57)
[2019-04-25] MEDS: LORAZEPAM INJ 2 MG/1 ML VIAL IV PRN ×2 (14:20→21:08)
[2019-04-25] MEDS ORDERED: CALCIUM GLUCONATE 2,000 MG in DEXTROSE 5%-WATER 100 ML IV ONE (15:30)
--- NOTE | 2019-04-25 16:32 | PDOC PROGRESS REPORT ---
Subjective Progress Note for:: 04/25/19 Subjective:: No adverse events overnight. No new complaints. Vital signs been stable. No abdominal pain. No nausea. He is not sure if he is been passing any gas. No chest pain or palpitations. Reason For Visit: HYPONATREMIA, HYPOKALEMIA, SBO Physical Exam Vital Signs: Temp Pulse Resp BP Pulse Ox 98.3 F 87 16 149/72 H 94 04/25/19 12:50 04/25/19 14:00 04/25/19 12:50 04/25/19 12:50 04/25/19 12:50 Intake & Output 04/24/19 04/25/19 04/26/19 06:59 06:59 06:59 Intake Total 1551.2 338 Output Total 2200 1025 Balance -648.8 -687 Weight 67.8 kg General appearance: PRESENT: no acute distress, cooperative, disheveled Respiratory exam: PRESENT: clear to auscultation mark, symmetrical, unlabored. ABSENT: accessory muscle use, crackles, prolonged expiratory phas, rhonchi, tachypnea, wheezes Cardiovascular exam: PRESENT: RRR, +S1, +S2 Pulses: PRESENT: normal carotid pulses Vascular exam: PRESENT: normal capillary refill GI/Abdominal exam: PRESENT: normal bowel sounds, soft. ABSENT: distended, guarding, rebound, tenderness Extremities exam: ABSENT: clubbing, pedal edema Musculoskeletal exam: PRESENT: normal inspection. ABSENT: deformity Neurological exam: PRESENT: alert, awake, oriented to person, oriented to place, oriented to time Psychiatric exam: PRESENT: appropriate affect, normal mood Skin exam: PRESENT: dry, warm Results Laboratory Results: 04/25/19 08:00 04/24/19 04/24/19 04/24/19 18:40 18:40 18:40 WBC 9.1 RBC 3.59 L Hgb 11.4 L Hct 31.7 L MCV 88 MCH 31.8 MCHC 36.0 RDW 13.3 Plt Count 293 Seg Neutrophils % Not Reportable Lymphocytes % Not Reportable Monocytes % Not Reportable Eosinophils % Not Reportable Basophils % Not Reportable Absolute Neutrophils Not Reportable Absolute Lymphocytes Not Reportable Absolute Monocytes Not Reportable Absolute Eosinophils Not Reportable Absolute Basophils Not Reportable VBG pH VBG pCO2 VBG HCO3 VBG Base Excess Sodium 119.9 L* Potassium 2.3 L* Chloride 71 L Carbon Dioxide 31 H Anion Gap 18 BUN 16 Creatinine 0.94 Est GFR ( Amer) > 60 Est GFR (Non-Af Amer) > 60 Glucose 113 H Serum Osmolality Lactic Acid Calcium 8.7 Phosphorus Magnesium 1.1 L* Total Bilirubin 1.6 H AST 74 H ALT 34 Alkaline Phosphatase 39 Total Protein 6.9 Albumin 4.3 Lipase 2260.9 H Urine Color Urine Appearance Urine pH Ur Specific [place] Urine Protein Urine Glucose (UA) Urine Ketones Urine Blood Urine Nitrite Ur Leukocyte Esterase Urine WBC (Auto) Urine RBC (Auto) Urine Osmolality 04/24/19 04/24/19 04/24/19 21:00 21:00 21:29 WBC RBC Hgb Hct MCV MCH MCHC RDW Plt Count Seg Neutrophils % Lymphocytes % Monocytes % Eosinophils % Basophils % Absolute Neutrophils Absolute Lymphocytes Absolute Monocytes Absolute Eosinophils Absolute Basophils VBG pH 7.46 H VBG pCO2 43.8 VBG HCO3 30.5 VBG Base Excess 6.1 Sodium Potassium Chloride Carbon Dioxide Anion Gap BUN Creatinine Est GFR ( Amer) Est GFR (Non-Af Amer) Glucose Serum Osmolality Lactic Acid 0.9 Calcium Phosphorus Magnesium Total Bilirubin AST ALT Alkaline Phosphatase Total Protein Albumin Lipase Urine Color Urine Appearance Urine pH Ur Specific [place] Urine Protein Urine Glucose (UA) Urine Ketones Urine Blood Urine Nitrite Ur Leukocyte Esterase Urine WBC (Auto) Urine RBC (Auto) Urine Osmolality 417 04/24/19 04/25/19 04/25/19 21:29 01:45 01:45 WBC RBC Hgb Hct MCV MCH MCHC RDW Plt Count Seg Neutrophils % Lymphocytes % Monocytes % Eosinophils % Basophils % Absolute Neutrophils Absolute Lymphocytes Absolute Monocytes Absolute Eosinophils Absolute Basophils VBG pH VBG pCO2 VBG HCO3 VBG Base Excess Sodium 121.0 L Potassium 2.7 L* Chloride 75 L Carbon Dioxide 31 H Anion Gap 15 BUN 15 Creatinine 0.88 Est GFR ( Amer) > 60 Est GFR (Non-Af Amer) > 60 Glucose 103 Serum Osmolality Lactic Acid 0.7 Calcium 7.9 L Phosphorus Magnesium Total Bilirubin AST ALT Alkaline Phosphatase Total Protein Albumin Lipase Urine Color YELLOW Urine Appearance CLEAR Urine pH 6.0 Ur Specific [place] 1.013 Urine Protein NEGATIVE Urine Glucose (UA) NEGATIVE Urine Ketones TRACE H Urine Blood SMALL H Urine Nitrite NEGATIVE Ur Leukocyte Esterase NEGATIVE Urine WBC (Auto) 0 Urine RBC (Auto) 2 Urine Osmolality 04/25/19 04/25/19 04/25/19 01:45 01:45 08:00 WBC RBC Hgb Hct MCV MCH MCHC RDW Plt Count Seg Neutrophils % Lymphocytes % Monocytes % Eosinophils % Basophils % Absolute Neutrophils Absolute Lymphocytes Absolute Monocytes Absolute Eosinophils Absolute Basophils VBG pH VBG pCO2 VBG HCO3 VBG Base Excess Sodium 124.4 L Potassium 2.6 L* Chloride 81 L Carbon Dioxide 25 Anion Gap 18 BUN 13 Creatinine 0.61 Est GFR ( Amer) > 60 Est GFR (Non-Af Amer) > 60 Glucose 100 Serum Osmolality 250 L Lactic Acid Calcium 6.6 L* Phosphorus 1.9 L Magnesium Total Bilirubin AST ALT Alkaline Phosphatase Total Protein Albumin Lipase Urine Color Urine Appearance Urine pH Ur Specific [place] Urine Protein Urine Glucose (UA) Urine Ketones Urine Blood Urine Nitrite Ur Leukocyte Esterase Urine WBC (Auto) Urine RBC (Auto) Urine Osmolality 04/25/19 04/25/19 04/25/19 08:00 08:00 08:00 WBC 11.2 H RBC 3.44 L Hgb 10.8 L Hct 30.5 L MCV 89 MCH 31.6 MCHC 35.6 RDW 13.0 Plt Count 286 Seg Neutrophils % Not Reportable Lymphocytes % Not Reportable Monocytes % Not Reportable Eosinophils % Not Reportable Basophils % Not Reportable Absolute Neutrophils Not Reportable Absolute Lymphocytes Not Reportable Absolute Monocytes Not Reportable Absolute Eosinophils Not Reportable Absolute Basophils Not Reportable VBG pH VBG pCO2 VBG HCO3 VBG Base Excess Sodium Potassium Chloride Carbon Dioxide Anion Gap BUN Creatinine Est GFR ( Amer) Est GFR (Non-Af Amer) Glucose Serum Osmolality Lactic Acid 0.7 Calcium Phosphorus Magnesium 2.1 D Total Bilirubin AST ALT Alkaline Phosphatase Total Protein Albumin Lipase Urine Color Urine Appearance Urine pH Ur Specific [place] Urine Protein Urine Glucose (UA) Urine Ketones Urine Blood Urine Nitrite Ur Leukocyte Esterase Urine WBC (Auto) Urine RBC (Auto) Urine Osmolality 04/25/19 11:26 WBC RBC Hgb Hct MCV MCH MCHC RDW Plt Count Seg Neutrophils % Lymphocytes % Monocytes % Eosinophils % Basophils % Absolute Neutrophils Absolute Lymphocytes Absolute Monocytes Absolute Eosinophils Absolute Basophils VBG pH VBG pCO2 VBG HCO3 VBG Base Excess Sodium 125.9 L Potassium 2.3 L* Chloride 83 L Carbon Dioxide 27 Anion Gap 16 BUN 12 Creatinine 0.79 Est GFR ( Amer) > 60 Est GFR (Non-Af Amer) > 60 Glucose 92 Serum Osmolality Lactic Acid Calcium 7.3 L Phosphorus 1.9 L Magnesium Total Bilirubin AST ALT Alkaline Phosphatase Total Protein Albumin Lipase Urine Color Urine Appearance Urine pH Ur Specific [place] Urine Protein Urine Glucose (UA) Urine Ketones Urine Blood Urine Nitrite Ur Leukocyte Esterase Urine WBC (Auto) Urine RBC (Auto) Urine Osmolality 04/24/19 18:40 Troponin I 0.023 Impressions: Abdomen/Pelvis CT 04/24/19 00:00 IMPRESSION: 1. Findings compatible with mechanical small bowel obstruction. The transition point is not definitely identified however it likely in the right mid abdomen. 2. Small amount of free fluid. 3. Centrilobular emphysematous change in the visualized lung bases. This exam was performed according to our departmental dose-optimization program, which includes automated exposure control, adjustment of the mA and/or kV according to patient size and/or use of iterative reconstruction technique. Abdomen X-Ray 04/24/19 18:55 IMPRESSION: 1. Diffusely distended small bowel, without definite colonic gas identified. The largest loops measure 4.7 cm in caliber. Findings are consistent with stated clinical concern for obstruction. 2. There is a subtle continuous diaphragm sign on erect radiographs concerning for pneumoperitoneum. Consider CT to evaluate if there is no explanation for intra-abdominal free air such as recent surgery. KUB X-Ray 04/25/19 01:30 IMPRESSION: Tip of the enteric tube in the stomach copyright 2011 [employer]- All Rights Reserved Assessment and Plan - Diagnosis (1) Alcoholism Is this a current diagnosis for this admission?: Yes Plan: Monitoring for signs of withdrawal, no signs thus far (2) Hypokalemia Is this a current diagnosis for this admission?: Yes Plan: Replacing with IV supplement (3) Hypomagnesemia Is this a current diagnosis for this admission?: Yes Plan: Resolved (4) Hyponatremia Is this a current diagnosis for this admission?: Yes Plan: Slowly improving, back to off of his fluid boluses and will monitor his metabolic panel frequently to ensure his sodium does not rise too rapidly (5) Ileus Is this a current diagnosis for this admission?: Yes Plan: Likely due to his multiple medical issues, surgery has been consulted, he is getting NG tube decompression - Time Time Spent with patient: 15-24 minutes
[2019-04-25 16:47] LABS: ANION GAP 16 (5-19); BLOOD UREA NITROGEN 13 mg/dL (7-20); CALCIUM 7.5 mg/dL (8.4-10.2); CARBON DIOXIDE 28 mmol/L (22-30); CHLORIDE 83 mmol/L (98-107); GLUCOSE 90 mg/dL (75-110); SODIUM 127.1 mmol/L (137-145)
[2019-04-25 16:56] LABS: POTASSIUM 2.7 mmol/L (3.6-5.0)
[2019-04-25] MEDS: ENALAPRILAT DIHYDRATE INJ/PF 1.25 MG/1 ML SDV IV PRN (21:08)
[2019-04-25] MEDS: THIAMINE HCL 100 MG, FOLIC ACID 1 MG in NORMAL SALINE 250 ML IV SCH (21:08)
[2019-04-25 21:58] LABS: ANION GAP 13 (5-19); BLOOD UREA NITROGEN 13 mg/dL (7-20); CALCIUM 7.3 mg/dL (8.4-10.2); CARBON DIOXIDE 26 mmol/L (22-30); CHLORIDE 91 mmol/L (98-107); GLUCOSE 82 mg/dL (75-110)
[2019-04-25 22:05] LABS: POTASSIUM 2.4 mmol/L (3.6-5.0)
[2019-04-25] MEDS: POTASSIUM CHLORIDE 20 MEQ/50 ML RTU IV SCH (23:33)
[2019-04-26] MEDS: POTASSIUM CHLORIDE 20 MEQ/50 ML RTU IV SCH ×3 (01:33→05:32)
[2019-04-26 01:52] LABS: ANION GAP 15 (5-19); BLOOD UREA NITROGEN 17 mg/dL (7-20); CARBON DIOXIDE 32 mmol/L (22-30); CHLORIDE 87 mmol/L (98-107); GLUCOSE 100 mg/dL (75-110); SODIUM 133.7 mmol/L (137-145)
[2019-04-26] MEDS: HEPARIN SOD (PORCINE) 5,000 UNIT/ML 1 ML SYRINGE SUBCUT SCH ×3 (05:32→21:21)
[2019-04-26 05:58] LABS: HEMATOCRIT 29.1 % (37.9-51.0); HEMOGLOBIN 10.3 g/dL (13.5-17.0); MEAN CORPUSCULAR HEMOGLOBIN 31.8 pg (27.0-33.4); MEAN CORPUSCULAR HGB CONC 35.5 g/dL (32.0-36.0); MEAN CORPUSCULAR VOLUME 90 fl (80-97); PLATELET COUNT 295 10^3/uL (150-450); RED BLOOD COUNT 3.25 10^6/uL (4.35-5.55); WHITE BLOOD COUNT 10.5 10^3/uL (4.0-10.5)
[2019-04-26 06:13] LABS: ANION GAP 15 (5-19); BLOOD UREA NITROGEN 18 mg/dL (7-20); CALCIUM 8.1 mg/dL (8.4-10.2); CARBON DIOXIDE 33 mmol/L (22-30); CHLORIDE 88 mmol/L (98-107); GLUCOSE 97 mg/dL (75-110); POTASSIUM 3.2 mmol/L (3.6-5.0); SODIUM 135.9 mmol/L (137-145)
[2019-04-26 06:53] LABS: ABSOLUTE LYMPHOCYTES# (MANUAL) 0.3 10^3/uL (0.5-4.7); ABSOLUTE MONOCYTES # (MANUAL) 0.5 10^3/uL (0.1-1.4); ABSOLUTE NEUTROPHILS# (MANUAL) 9.7 10^3/uL (1.7-8.2); BASOPHILS % (MANUAL) 0 % (0-2); EOSINOPHILS % (MANUAL) 0 % (0-6); LYMPHOCYTES % (MANUAL) 3 % (13-45); MONOCYTES % (MANUAL) 5 % (3-13); SEGMENTED NEUTROPHILS % (MAN) 92 % (42-78); TOTAL CELLS COUNTED 100
[2019-04-26 06:55] LABS: PLATELET COMMENT ADEQUATE; TARGET CELLS SLIGHT
[2019-04-26 06:56] LABS: HYPOCHROMASIA SLIGHT
[2019-04-26] MEDS: IPRATROPIUM/ALBUTEROL 0.5-2.5 MG/3 ML AMPUL NEB SCH ×2 (08:21→20:59)
[2019-04-26] MEDS ORDERED: POTASSIUM CHLORIDE 10 MEQ CAPSULE.ER PO ONE (09:36)
--- NOTE | 2019-04-26 09:49 | RADIOLOGY REPORT (SQ) ---
EXAM DESCRIPTION: KUB/ABDOMEN (SINGLE VIEW) COMPLETED DATE/TIME: 04/26/2019 9:32 am REASON FOR STUDY: distention COMPARISON: 04/24/2019 NUMBER OF VIEWS: One view. TECHNIQUE: Supine radiographic image of the abdomen acquired. LIMITATIONS: None. FINDINGS: BOWEL GAS PATTERN: Decreased gaseous distention compared to priors. No residual pathologi sergo dilated loops of gas containing bowel. CALCIFICATIONS: No suspicious calcifications. SOFT TISSUES: No gross mass or suggestion of organomegaly. HARDWARE: Nasoenteric tube tip overlies proximal gastric body with side port at GE junction. BONES: No acute fracture. No worrisome bone lesions. OTHER: Aortic atherosclerosis. IMPRESSION: 1. Nasoenteric tube side port at GE junction. Consider advancing 5 cm. 2. Improved gaseous distention without definite pathologically dilated loops of bowel. TECHNICAL DOCUMENTATION: JOB ID: [id number] [employer]- All Rights Reserved Reading location - IP/workstation name: [email or web address]
[2019-04-26] MEDS: POTASSI CL 20 MEQ/50 ML RIDER 20 MEQ/50 ML RTUPB IV SCH ×2 (10:23→12:25)
[2019-04-26] MEDS: HYDRALAZINE HCL INJ/PF 20 MG/1 ML SDV IV PRN ×2 (10:24→21:43)
--- NOTE | 2019-04-26 11:04 | PDOC PROGRESS REPORT ---
Subjective Progress Note for:: 04/26/19 Subjective:: 68-year-old male admitted with nausea, vomiting, and signs of small bowel obstruction. The patient reports feeling much better this morning. He denies chest pain, shortness of breath, fevers, chills, nausea, vomiting, fatigue, malaise. He is passing flatus and having small, liquid bowel movements. He denies any abdominal pain. Reason For Visit: HYPONATREMIA, HYPOKALEMIA, SBO Physical Exam Vital Signs: Temp Pulse Resp BP Pulse Ox 98.3 F 94 18 173/82 H 100 04/26/19 08:26 04/26/19 10:00 04/26/19 10:00 04/26/19 10:00 04/26/19 08:26 Intake & Output 04/25/19 04/26/19 04/27/19 06:59 06:59 06:59 Intake Total 1551.2 589.2 Output Total 2200 6075 Balance -648.8 -5485.8 Weight 67.8 kg 64.9 kg General appearance: PRESENT: no acute distress, cooperative Head exam: PRESENT: atraumatic, normocephalic Eye exam: PRESENT: EOMI. ABSENT: scleral icterus Mouth exam: ABSENT: moist, neck supple Neck exam: ABSENT: meningismus, tenderness, thyromegaly, tracheal deviation Respiratory exam: PRESENT: unlabored. ABSENT: chest wall tenderness, wheezes Cardiovascular exam: ABSENT: tachycardia GI/Abdominal exam: PRESENT: soft. ABSENT: distended, firm, guarding, rebound, rigid, tenderness Rectal exam: PRESENT: deferred Musculoskeletal exam: ABSENT: deformity Neurological exam: PRESENT: alert, awake, oriented to person, oriented to place, oriented to time, oriented to situation, CN II-XII grossly intact. ABSENT: motor sensory deficit Psychiatric exam: ABSENT: agitated, anxious, depressed Focused psych exam: ABSENT: delusional Skin exam: ABSENT: cyanosis, erythema, jaundice Results Laboratory Results: 04/26/19 05:25 04/25/19 04/25/19 04/25/19 11:26 15:50 15:50 WBC RBC Hgb Hct MCV MCH MCHC RDW Plt Count Seg Neutrophils % Lymphocytes % Monocytes % Eosinophils % Basophils % Absolute Neutrophils Absolute Lymphocytes Absolute Monocytes Absolute Eosinophils Absolute Basophils Sodium 125.9 L 127.1 L Potassium 2.3 L* 2.7 L* Chloride 83 L 83 L Carbon Dioxide 27 28 Anion Gap 16 16 BUN 12 13 Creatinine 0.79 0.84 Est GFR ( Amer) > 60 > 60 Est GFR (Non-Af Amer) > 60 > 60 Glucose 92 90 Lactic Acid 0.7 Calcium 7.3 L 7.5 L Phosphorus 1.9 L Magnesium 04/25/19 04/25/19 04/26/19 21:30 21:30 01:30 WBC RBC Hgb Hct MCV MCH MCHC RDW Plt Count Seg Neutrophils % Lymphocytes % Monocytes % Eosinophils % Basophils % Absolute Neutrophils Absolute Lymphocytes Absolute Monocytes Absolute Eosinophils Absolute Basophils Sodium 130.0 L 133.7 L Potassium 2.4 L* 3.0 L* Chloride 91 L 87 L Carbon Dioxide 26 32 H Anion Gap 13 15 BUN 13 17 Creatinine 0.73 0.80 Est GFR ( Amer) > 60 > 60 Est GFR (Non-Af Amer) > 60 > 60 Glucose 82 100 Lactic Acid 0.6 L Calcium 7.3 L 8.0 L Phosphorus Magnesium 04/26/19 04/26/19 05:25 05:25 WBC 10.5 RBC 3.25 L Hgb 10.3 L Hct 29.1 L MCV 90 MCH 31.8 MCHC 35.5 RDW 13.0 Plt Count 295 Seg Neutrophils % Not Reportable Lymphocytes % Not Reportable Monocytes % Not Reportable Eosinophils % Not Reportable Basophils % Not Reportable Absolute Neutrophils Not Reportable Absolute Lymphocytes Not Reportable Absolute Monocytes Not Reportable Absolute Eosinophils Not Reportable Absolute Basophils Not Reportable Sodium 135.9 L Potassium 3.2 L Chloride 88 L Carbon Dioxide 33 H Anion Gap 15 BUN 18 Creatinine 0.84 Est GFR ( Amer) > 60 Est GFR (Non-Af Amer) > 60 Glucose 97 Lactic Acid Calcium 8.1 L Phosphorus Magnesium 1.9 04/24/19 18:40 Troponin I 0.023 Impressions: Abdomen/Pelvis CT 04/24/19 00:00 IMPRESSION: 1. Findings compatible with mechanical small bowel obstruction. The transition point is not definitely identified however it likely in the right mid abdomen. 2. Small amount of free fluid. 3. Centrilobular emphysematous change in the visualized lung bases. This exam was performed according to our departmental dose-optimization program, which includes automated exposure control, adjustment of the mA and/or kV according to patient size and/or use of iterative reconstruction technique. Abdomen X-Ray 04/24/19 18:55 IMPRESSION: 1. Diffusely distended small bowel, without definite colonic gas identified. The largest loops measure 4.7 cm in caliber. Findings are consistent with stated clinical concern for obstruction. 2. There is a subtle continuous diaphragm sign on erect radiographs concerning for pneumoperitoneum. Consider CT to evaluate if there is no explanation for intra-abdominal free air such as recent surgery. KUB X-Ray 04/26/19 00:00 IMPRESSION: 1. Nasoenteric tube side port at GE junction. Consider advancing 5 cm. 2. Improved gaseous distention without definite pathologically dilated loops of bowel. Assessment & Plan - Diagnosis (1) Nausea and vomiting Qualifiers: Vomiting Intractability: unspecified Is this a current diagnosis for this admission?: Yes (2) Small bowel obstruction Is this a current diagnosis for this admission?: Yes - Plan Summary Plan Summary: This is a 68-year-old male with a possible small bowel obstruction. The patient has undergone NG decompression, and his abdominal x-rays are normal. The patient is passing flatus and having small, liquid bowel movements. The patient is feeling much improved today. I will order a small bowel follow-through to assess for a partial small bowel obstruction. If the study is normal, I will remove the NG tube and start the patient on a diet. If the study is abnormal, he may require surgical intervention. Continue with medical management of his severe electrolyte abnormalities. Will follow.
[2019-04-26 11:11] LABS: ANION GAP 18 (5-19); BLOOD UREA NITROGEN 20 mg/dL (7-20); CALCIUM 8.3 mg/dL (8.4-10.2); CARBON DIOXIDE 34 mmol/L (22-30); CHLORIDE 87 mmol/L (98-107); GLUCOSE 109 mg/dL (75-110); SODIUM 138.6 mmol/L (137-145)
[2019-04-26 11:16] LABS: POTASSIUM 2.9 mmol/L (3.6-5.0)
--- NOTE | 2019-04-26 16:01 | RADIOLOGY REPORT (SQ) ---
EXAM DESCRIPTION: SMALL BOWEL SERIES COMPLETED DATE/TIME: 04/26/2019 3:13 pm REASON FOR STUDY: SBO abdominal pain COMPARISON: CT abdomen/pelvis 04/24/2019 FLUOROSCOPY TIME: 1 minutes 8 seconds of fluoroscopy was used. 9 images saved to PACS. LIMITATIONS: None. 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 Se rial radiographic images acquired. Fluoroscopic images recorded of the terminal ileum and other joel cated areas. All images stored on PACS. 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 No abnormal calcifications. Soft tissue planes normal. NG tube place with the tip within the lumen of the stomach. STOMACH: No significant reflux. Normal distention without abnormality. DUODENUM: Normal mucosal pattern with adequate distention. No displacement or obstruction. JEJUNUM: Mild mucosal thickening throughout the jejunum without evidence of obstruction or dilatation . ILEUM: Normal mucosal pattern. No dilatation, segmentation, strictures or masses. TERMINAL ILEUM AND ILEO-CECAL VALVE: Normal mucosal pattern without "cobble-stoning" or stricture. N ormal compression. PROXIMAL COLON: Incompletely imaged. No abnormality. OTHER: Transit time is normal with contrast seen within the cecum at 90 minutes. IMPRESSION: NO EVIDENCE OF SMALL-BOWEL OBSTRUCTION. MUCOSAL THICKENING INVOLVING MAJORITY LOOPS OF JEJUNUM WITHOUT EVIDENCE OF OBSTRUCTION OR DILATATION. COMMENT: Quality ID [id number]: Final reports for procedures using fluoroscopy that document radiation exp osure indices, or exposure time and number of fluorographic images (if radiation exposure indices are not available) TECHNICAL DOCUMENTATION: JOB ID: [id number] [employer]- All Rights Reserved Reading location - IP/workstation name: [email or web address]
[2019-04-26 16:29] LABS: ANION GAP 18 (5-19); BLOOD UREA NITROGEN 22 mg/dL (7-20); CARBON DIOXIDE 35 mmol/L (22-30); CHLORIDE 92 mmol/L (98-107); GLUCOSE 119 mg/dL (75-110); SODIUM 145.2 mmol/L (137-145)
[2019-04-26] MEDS ORDERED: POTASSI CL 20 MEQ/50 ML RIDER 20 MEQ/50 ML RTUPB IV ONE (17:54)
--- NOTE | 2019-04-26 17:58 | PDOC PROGRESS REPORT ---
Subjective Progress Note for:: 04/26/19 Subjective:: No adverse events overnight. No new complaints. The chest tube was clamped whenever I came in. He said he had 2 bowel movements and is passing gas. Reason For Visit: HYPONATREMIA, HYPOKALEMIA, SBO Physical Exam Vital Signs: Temp Pulse Resp BP Pulse Ox 97.9 F 98 20 172/90 H 94 04/26/19 16:11 04/26/19 16:11 04/26/19 16:11 04/26/19 16:11 04/26/19 16:11 Intake & Output 04/25/19 04/26/19 04/27/19 06:59 06:59 06:59 Intake Total 1551.2 589.2 Output Total 2200 6075 Balance -648.8 -5485.8 Weight 67.8 kg 64.9 kg General appearance: PRESENT: no acute distress, cooperative, disheveled Respiratory exam: PRESENT: clear to auscultation mark, symmetrical, unlabored. ABSENT: accessory muscle use, crackles, prolonged expiratory phas, rhonchi, tachypnea, wheezes Cardiovascular exam: PRESENT: RRR, +S1, +S2 Pulses: PRESENT: normal carotid pulses Vascular exam: PRESENT: normal capillary refill GI/Abdominal exam: PRESENT: Hypoactive bowel sounds, soft. ABSENT: distended, guarding, rebound, tenderness Extremities exam: ABSENT: clubbing, pedal edema Musculoskeletal exam: PRESENT: normal inspection. ABSENT: deformity Neurological exam: PRESENT: alert, awake, oriented to person, oriented to place, oriented to time Psychiatric exam: PRESENT: appropriate affect, normal mood Skin exam: PRESENT: dry, warm Results Laboratory Results: 04/26/19 05:25 04/26/19 15:58 04/25/19 04/25/19 04/26/19 21:30 21:30 01:30 WBC RBC Hgb Hct MCV MCH MCHC RDW Plt Count Seg Neutrophils % Lymphocytes % Monocytes % Eosinophils % Basophils % Absolute Neutrophils Absolute Lymphocytes Absolute Monocytes Absolute Eosinophils Absolute Basophils Sodium 130.0 L 133.7 L Potassium 2.4 L* 3.0 L* Chloride 91 L 87 L Carbon Dioxide 26 32 H Anion Gap 13 15 BUN 13 17 Creatinine 0.73 0.80 Est GFR ( Amer) > 60 > 60 Est GFR (Non-Af Amer) > 60 > 60 Glucose 82 100 Lactic Acid 0.6 L Calcium 7.3 L 8.0 L Magnesium 04/26/19 04/26/19 04/26/19 05:25 05:25 10:22 WBC 10.5 RBC 3.25 L Hgb 10.3 L Hct 29.1 L MCV 90 MCH 31.8 MCHC 35.5 RDW 13.0 Plt Count 295 Seg Neutrophils % Not Reportable Lymphocytes % Not Reportable Monocytes % Not Reportable Eosinophils % Not Reportable Basophils % Not Reportable Absolute Neutrophils Not Reportable Absolute Lymphocytes Not Reportable Absolute Monocytes Not Reportable Absolute Eosinophils Not Reportable Absolute Basophils Not Reportable Sodium 135.9 L 138.6 Potassium 3.2 L 2.9 L* Chloride 88 L 87 L Carbon Dioxide 33 H 34 H Anion Gap 15 18 BUN 18 20 Creatinine 0.84 0.84 Est GFR ( Amer) > 60 > 60 Est GFR (Non-Af Amer) > 60 > 60 Glucose 97 109 Lactic Acid Calcium 8.1 L 8.3 L Magnesium 1.9 04/26/19 15:58 WBC RBC Hgb Hct MCV MCH MCHC RDW Plt Count Seg Neutrophils % Lymphocytes % Monocytes % Eosinophils % Basophils % Absolute Neutrophils Absolute Lymphocytes Absolute Monocytes Absolute Eosinophils Absolute Basophils Sodium 145.2 H Potassium 3.0 L* Chloride 92 L Carbon Dioxide 35 H Anion Gap 18 BUN 22 H Creatinine 0.89 Est GFR ( Amer) > 60 Est GFR (Non-Af Amer) > 60 Glucose 119 H Lactic Acid Calcium 9.0 Magnesium 04/24/19 18:40 Troponin I 0.023 Impressions: Abdomen/Pelvis CT 04/24/19 00:00 IMPRESSION: 1. Findings compatible with mechanical small bowel obstruction. The transition point is not definitely identified however it likely in the right mid abdomen. 2. Small amount of free fluid. 3. Centrilobular emphysematous change in the visualized lung bases. This exam was performed according to our departmental dose-optimization program, which includes automated exposure control, adjustment of the mA and/or kV according to patient size and/or use of iterative reconstruction technique. Abdomen X-Ray 04/24/19 18:55 IMPRESSION: 1. Diffusely distended small bowel, without definite colonic gas identified. The largest loops measure 4.7 cm in caliber. Findings are consistent with stated clinical concern for obstruction. 2. There is a subtle continuous diaphragm sign on erect radiographs concerning for pneumoperitoneum. Consider CT to evaluate if there is no explanation for intra-abdominal free air such as recent surgery. KUB X-Ray 04/26/19 00:00 IMPRESSION: 1. Nasoenteric tube side port at GE junction. Consider advancing 5 cm. 2. Improved gaseous distention without definite pathologically dilated loops of bowel. Small Bowel X-Ray 04/26/19 00:00 IMPRESSION: NO EVIDENCE OF SMALL-BOWEL OBSTRUCTION. MUCOSAL THICKENING INVOLVING MAJORITY LOOPS OF JEJUNUM WITHOUT EVIDENCE OF OBSTRUCTION OR DILATATION. Assessment and Plan - Diagnosis (1) Alcoholism Is this a current diagnosis for this admission?: Yes Plan: Monitoring for signs of withdrawal, no signs thus far (2) Hypokalemia Is this a current diagnosis for this admission?: Yes Plan: Hypomagnesemia has been corrected and he is requiring repeated doses of potassium to get his potassium up but it is coming up (3) Hypomagnesemia Is this a current diagnosis for this admission?: Yes Plan: Resolved (4) Hyponatremia Is this a current diagnosis for this admission?: Yes Plan: Resolved (5) Ileus Is this a current diagnosis for this admission?: Yes Plan: Tube is clamped and he said he has had a couple of bowel movements and is passing gas. Hopefully surgery will be able to remove his NG tube and we can start him on a diet. - Time Time Spent with patient: 15-24 minutes
[2019-04-26] MEDS: THIAMINE HCL 100 MG, FOLIC ACID 1 MG in NORMAL SALINE 250 ML IV SCH (21:21)
[2019-04-26] MEDS: LORAZEPAM INJ 2 MG/1 ML VIAL IV PRN ×2 (21:44→23:53)
[2019-04-26] MEDS: ENALAPRILAT DIHYDRATE INJ/PF 1.25 MG/1 ML SDV IV PRN (23:53)
[2019-04-27] MEDS ORDERED: DIAZEPAM INJ 10 MG/2 ML DISP.SYRIN IV PRN (01:19)
[2019-04-27] MEDS ORDERED: DIAZEPAM INJ 10 MG/2 ML DISP.SYRIN IV ONE (01:30)
[2019-04-27] MEDS: HEPARIN SOD (PORCINE) 5,000 UNIT/ML 1 ML SYRINGE SUBCUT SCH ×3 (05:41→21:16)
[2019-04-27 05:52] LABS: HEMATOCRIT 29.5 % (37.9-51.0); HEMOGLOBIN 10.3 g/dL (13.5-17.0); MEAN CORPUSCULAR HEMOGLOBIN 31.7 pg (27.0-33.4); MEAN CORPUSCULAR HGB CONC 35.1 g/dL (32.0-36.0); MEAN CORPUSCULAR VOLUME 90 fl (80-97); PLATELET COUNT 356 10^3/uL (150-450); RED BLOOD COUNT 3.27 10^6/uL (4.35-5.55); RED CELL DISTRIBUTION WIDTH 13.4 % (11.5-14.0)
[2019-04-27] MEDS ORDERED: DIAZEPAM 5 MG TABLET PO SCH (06:00)
[2019-04-27 06:16] LABS: ANION GAP 18 (5-19); BLOOD UREA NITROGEN 25 mg/dL (7-20); CALCIUM 9.1 mg/dL (8.4-10.2); CARBON DIOXIDE 36 mmol/L (22-30); CHLORIDE 97 mmol/L (98-107); GLUCOSE 102 mg/dL (75-110); SODIUM 150.5 mmol/L (137-145)
[2019-04-27 06:24] LABS: POTASSIUM 2.9 mmol/L (3.6-5.0)
[2019-04-27] MEDS ORDERED: POTASSI CL 20 MEQ/50 ML RIDER 20 MEQ/50 ML RTUPB IV ONE (06:38)
[2019-04-27] MEDS: POTASSIUM CHLORIDE 20 MEQ/50 ML RTU IV SCH ×2 (07:00→08:49)
[2019-04-27] MEDS ORDERED: ONDANSETRON HCL INJ/PF 4 MG/2 ML SDV IV PRN (08:00)
[2019-04-27] MEDS: IPRATROPIUM/ALBUTEROL 0.5-2.5 MG/3 ML AMPUL NEB SCH ×2 (08:28→20:00)
[2019-04-27] MEDS ORDERED: POTASSI CL 20 MEQ/D5-1/4NS 1L 1,000 ML IV PRN (08:42)
--- NOTE | 2019-04-27 08:57 | PDOC PROGRESS REPORT ---
Subjective Progress Note for:: 04/27/19 Subjective:: Having bowel movements now. Patient is hungry. Reason For Visit: HYPONATREMIA, HYPOKALEMIA, SBO Physical Exam Vital Signs: Temp Pulse Resp BP Pulse Ox 98.4 F 89 18 162/81 H 90 L 04/27/19 07:45 04/27/19 08:31 04/27/19 08:31 04/27/19 07:45 04/27/19 08:31 Intake & Output 04/26/19 04/27/19 04/28/19 06:59 06:59 06:59 Intake Total 601.2 251.2 Output Total 6075 200 Balance -5473.8 51.2 Weight 64.9 kg 61.9 kg General appearance: PRESENT: no acute distress, cooperative Respiratory exam: PRESENT: wheezes Cardiovascular exam: PRESENT: RRR GI/Abdominal exam: PRESENT: other - Soft, nondistended, nontender to palpation. Results Laboratory Results: 04/27/19 05:15 04/27/19 05:15 04/26/19 04/26/19 04/27/19 10:22 15:58 05:15 WBC 11.0 H RBC 3.27 L Hgb 10.3 L Hct 29.5 L MCV 90 MCH 31.7 MCHC 35.1 RDW 13.4 Plt Count 356 Sodium 138.6 145.2 H Potassium 2.9 L* 3.0 L* Chloride 87 L 92 L Carbon Dioxide 34 H 35 H Anion Gap 18 18 BUN 20 22 H Creatinine 0.84 0.89 Est GFR ( Amer) > 60 > 60 Est GFR (Non-Af Amer) > 60 > 60 Glucose 109 119 H Calcium 8.3 L 9.0 04/27/19 05:15 WBC RBC Hgb Hct MCV MCH MCHC RDW Plt Count Sodium 150.5 H Potassium 2.9 L* Chloride 97 L Carbon Dioxide 36 H Anion Gap 18 BUN 25 H Creatinine 1.02 Est GFR ( Amer) > 60 Est GFR (Non-Af Amer) > 60 Glucose 102 Calcium 9.1 04/24/19 18:40 Troponin I 0.023 Impressions: Abdomen/Pelvis CT 04/24/19 00:00 IMPRESSION: 1. Findings compatible with mechanical small bowel obstruction. The transition point is not definitely identified however it likely in the right mid abdomen. 2. Small amount of free fluid. 3. Centrilobular emphysematous change in the visualized lung bases. This exam was performed according to our departmental dose-optimization program, which includes automated exposure control, adjustment of the mA and/or kV according to patient size and/or use of iterative reconstruction technique. Abdomen X-Ray 04/24/19 18:55 IMPRESSION: 1. Diffusely distended small bowel, without definite colonic gas identified. The largest loops measure 4.7 cm in caliber. Findings are consistent with stated clinical concern for obstruction. 2. There is a subtle continuous diaphragm sign on erect radiographs concerning for pneumoperitoneum. Consider CT to evaluate if there is no explanation for intra-abdominal free air such as recent surgery. KUB X-Ray 04/26/19 00:00 IMPRESSION: 1. Nasoenteric tube side port at GE junction. Consider advancing 5 cm. 2. Improved gaseous distention without definite pathologically dilated loops of bowel. Small Bowel X-Ray 04/26/19 00:00 IMPRESSION: NO EVIDENCE OF SMALL-BOWEL OBSTRUCTION. MUCOSAL THICKENING INVOLVING MAJORITY LOOPS OF JEJUNUM WITHOUT EVIDENCE OF OBSTRUCTION OR DILATATION. Assessment & Plan - Diagnosis (1) Ileus Is this a current diagnosis for this admission?: Yes Plan: Resolved. His x-ray studies does show some jejunal mucosal edema but no evidence of obstruction. His visceral vessels are patent by contrasted CT scan. We will DC NG tube and start clear liquids. Advance as tolerated.
[2019-04-27] MEDS: DIAZEPAM 5 MG TABLET PO SCH ×5 (10:10→21:16)
[2019-04-27] MEDS: POTASSI CL 20 MEQ/1/2NS 1L 20 MEQ/1,000 ML RTUINJ IV PRN ×2 (12:41→22:53)
[2019-04-27] MEDS: HYDRALAZINE HCL INJ/PF 20 MG/1 ML SDV IV PRN ×2 (15:38→23:48)
--- NOTE | 2019-04-27 17:40 | PDOC PROGRESS REPORT ---
Subjective Progress Note for:: 04/27/19 Subjective:: No adverse events overnight. No new complaints. Blood pressure was up a little bit today. He has been put on clear liquids and had his NG tube removed. Reason For Visit: HYPONATREMIA, HYPOKALEMIA, SBO Physical Exam Vital Signs: Temp Pulse Resp BP Pulse Ox 97.5 F 100 18 192/90 H 92 04/27/19 15:19 04/27/19 15:19 04/27/19 15:19 04/27/19 15:19 04/27/19 15:19 Intake & Output 04/26/19 04/27/19 04/28/19 06:59 06:59 06:59 Intake Total 601.2 251.2 625 Output Total 6075 200 Balance -5473.8 51.2 625 Weight 64.9 kg 61.9 kg General appearance: PRESENT: no acute distress, cooperative, disheveled Respiratory exam: PRESENT: clear to auscultation mark, symmetrical, unlabored. ABSENT: accessory muscle use, crackles, prolonged expiratory phas, rhonchi, tachypnea, wheezes Cardiovascular exam: PRESENT: RRR, +S1, +S2 Pulses: PRESENT: normal carotid pulses Vascular exam: PRESENT: normal capillary refill GI/Abdominal exam: PRESENT: Hypoactive bowel sounds, soft. ABSENT: distended, guarding, rebound, tenderness Extremities exam: ABSENT: clubbing, pedal edema Musculoskeletal exam: PRESENT: normal inspection. ABSENT: deformity Neurological exam: PRESENT: alert, awake, oriented to person, oriented to place, oriented to time Psychiatric exam: PRESENT: appropriate affect, normal mood Skin exam: PRESENT: dry, warm Results Laboratory Results: 04/27/19 05:15 04/27/19 05:15 04/27/19 04/27/19 04/27/19 05:15 05:15 05:15 WBC 11.0 H RBC 3.27 L Hgb 10.3 L Hct 29.5 L MCV 90 MCH 31.7 MCHC 35.1 RDW 13.4 Plt Count 356 Sodium 150.5 H Potassium 2.9 L* Chloride 97 L Carbon Dioxide 36 H Anion Gap 18 BUN 25 H Creatinine 1.02 Est GFR ( Amer) > 60 Est GFR (Non-Af Amer) > 60 Glucose 102 Calcium 9.1 Magnesium 2.0 04/24/19 18:40 Troponin I 0.023 Impressions: Abdomen/Pelvis CT 04/24/19 00:00 IMPRESSION: 1. Findings compatible with mechanical small bowel obstruction. The transition point is not definitely identified however it likely in the right mid abdomen. 2. Small amount of free fluid. 3. Centrilobular emphysematous change in the visualized lung bases. This exam was performed according to our departmental dose-optimization program, which includes automated exposure control, adjustment of the mA and/or kV according to patient size and/or use of iterative reconstruction technique. Abdomen X-Ray 04/24/19 18:55 IMPRESSION: 1. Diffusely distended small bowel, without definite colonic gas identified. The largest loops measure 4.7 cm in caliber. Findings are consistent with stated clinical concern for obstruction. 2. There is a subtle continuous diaphragm sign on erect radiographs concerning for pneumoperitoneum. Consider CT to evaluate if there is no explanation for intra-abdominal free air such as recent surgery. KUB X-Ray 04/26/19 00:00 IMPRESSION: 1. Nasoenteric tube side port at GE junction. Consider advancing 5 cm. 2. Improved gaseous distention without definite pathologically dilated loops of bowel. Small Bowel X-Ray 04/26/19 00:00 IMPRESSION: NO EVIDENCE OF SMALL-BOWEL OBSTRUCTION. MUCOSAL THICKENING INVOLVI NG MAJORITY LOOPS OF JEJUNUM WITHOUT EVIDENCE OF OBSTRUCTION OR DILATATION. Assessment and Plan - Diagnosis (1) Alcoholism Is this a current diagnosis for this admission?: Yes Plan: Monitoring for signs of withdrawal, no signs thus far (2) Hypokalemia Is this a current diagnosis for this admission?: Yes Plan: Hypomagnesemia has been corrected and he is requiring repeated doses of potassium to get his potassium up but it is coming up slowly (3) Hypomagnesemia Is this a current diagnosis for this admission?: Yes Plan: Resolved (4) Hyponatremia Is this a current diagnosis for this admission?: Yes Plan: Resolved. Now actually hypernatremic requiring some dilute fluid. (5) Ileus Is this a current diagnosis for this admission?: Yes Plan: NG tube is out. Started on clears, surgery following - Time Time Spent with patient: 15-24 minutes
[2019-04-27] MEDS ORDERED: THIAMINE HCL INJ 200 MG/2 ML VIAL ONE (21:12)
[2019-04-27] MEDS: THIAMINE HCL 100 MG, FOLIC ACID 1 MG in NORMAL SALINE 250 ML IV SCH (21:16)
[2019-04-28] MEDS: DIAZEPAM 5 MG TABLET PO SCH ×6 (02:03→22:09)
[2019-04-28 04:56] LABS: HEMOGLOBIN 10.1 g/dL (13.5-17.0); MEAN CORPUSCULAR HEMOGLOBIN 31.7 pg (27.0-33.4); MEAN CORPUSCULAR HGB CONC 34.9 g/dL (32.0-36.0); MEAN CORPUSCULAR VOLUME 91 fl (80-97); PLATELET COUNT 366 10^3/uL (150-450); RED BLOOD COUNT 3.18 10^6/uL (4.35-5.55); RED CELL DISTRIBUTION WIDTH 13.3 % (11.5-14.0); WHITE BLOOD COUNT 11.4 10^3/uL (4.0-10.5)
[2019-04-28 05:13] LABS: ANION GAP 10 (5-19); BLOOD UREA NITROGEN 22 mg/dL (7-20); CALCIUM 8.2 mg/dL (8.4-10.2); CARBON DIOXIDE 35 mmol/L (22-30); CHLORIDE 99 mmol/L (98-107); GLUCOSE 139 mg/dL (75-110); POTASSIUM 3.1 mmol/L (3.6-5.0); SODIUM 143.6 mmol/L (137-145)
[2019-04-28] MEDS: HEPARIN SOD (PORCINE) 5,000 UNIT/ML 1 ML SYRINGE SUBCUT SCH ×3 (05:27→22:09)
[2019-04-28] MEDS: HYDRALAZINE HCL INJ/PF 20 MG/1 ML SDV IV PRN ×2 (06:10→18:00)
[2019-04-28] MEDS: IPRATROPIUM/ALBUTEROL 0.5-2.5 MG/3 ML AMPUL NEB SCH ×2 (08:33→20:14)
[2019-04-28] MEDS ORDERED: POTASSIUM CHLORIDE 10 MEQ CAPSULE.ER PO ONE (10:00)
[2019-04-28] MEDS: POTASSI CL 20 MEQ/1/2NS 1L 20 MEQ/1,000 ML RTUINJ IV PRN ×2 (10:21→20:24)
--- NOTE | 2019-04-28 16:08 | PDOC PROGRESS REPORT ---
Subjective Progress Note for:: 04/28/19 Subjective:: feeling better. Passed flatus today. Reason For Visit: HYPONATREMIA, HYPOKALEMIA, SBO Physical Exam Vital Signs: Temp Pulse Resp BP Pulse Ox 97.4 F 92 18 167/81 H 92 04/28/19 03:35 04/28/19 08:33 04/28/19 08:33 04/28/19 03:35 04/28/19 08:33 Intake & Output 04/27/19 04/28/19 04/29/19 06:59 06:59 06:59 Intake Total 251.2 2855.2 1000 Output Total 200 275 Balance 51.2 2580.2 1000 Weight 61.9 kg 63.7 kg Exam: abdomen is slightly distended but soft and non tender. Results Laboratory Results: 04/28/19 04:23 04/28/19 04:23 04/28/19 04/28/19 04:23 04:23 WBC 11.4 H RBC 3.18 L Hgb 10.1 L Hct 29.0 L MCV 91 MCH 31.7 MCHC 34.9 RDW 13.3 Plt Count 366 Sodium 143.6 Potassium 3.1 L Chloride 99 Carbon Dioxide 35 H Anion Gap 10 BUN 22 H Creatinine 0.71 Est GFR ( Amer) > 60 Est GFR (Non-Af Amer) > 60 Glucose 139 H Calcium 8.2 L 04/24/19 18:40 Troponin I 0.023 Impressions: Abdomen/Pelvis CT 04/24/19 00:00 IMPRESSION: 1. Findings compatible with mechanical small bowel obstruction. The transition point is not definitely identified however it likely in the right mid abdomen. 2. Small amount of free fluid. 3. Centrilobular emphysematous change in the visualized lung bases. This exam was performed according to our departmental dose-optimization program, which includes automated exposure control, adjustment of the mA and/or kV according to patient size and/or use of iterative reconstruction technique. Abdomen X-Ray 04/24/19 18:55 IMPRESSION: 1. Diffusely distended small bowel, without definite colonic gas identified. The largest loops measure 4.7 cm in caliber. Findings are consistent with stated clinical concern for obstruction. 2. There is a subtle continuous diaphragm sign on erect radiographs concerning for pneumoperitoneum. Consider CT to evaluate if there is no explanation for intra-abdominal free air such as recent surgery. KUB X-Ray 04/26/19 00:00 IMPRESSION: 1. Nasoenteric tube side port at GE junction. Consider advancing 5 cm. 2. Improved gaseous distention without definite pathologically dilated loops of bowel. Small Bowel X-Ray 04/26/19 00:00 IMPRESSION: NO EVIDENCE OF SMALL-BOWEL OBSTRUCTION. MUCOSAL THICKENING INVOLVING MAJORITY LOOPS OF JEJUNUM WITHOUT EVIDENCE OF OBSTRUCTION OR DILATATION. Assessment & Plan - Time Time Spent with patient: 15-24 minutes - Plan Summary Plan Summary: OK to increase diet to full liquids and advance to soft diet as tolerated. Encourage to ambulate. Will sign off. Call for any questions.
--- NOTE | 2019-04-28 18:24 | PDOC PROGRESS REPORT ---
Subjective Progress Note for:: 04/28/19 Subjective:: No adverse events overnight. No new complaints. He said he is tolerating his liquids without any problems. He reports having flatus. He had a bowel movement yesterday. Says he feels very weak. Reason For Visit: HYPONATREMIA, HYPOKALEMIA, SBO Physical Exam Vital Signs: Temp Pulse Resp BP Pulse Ox 98.0 F 96 18 174/97 H 91 L 04/28/19 15:33 04/28/19 15:33 04/28/19 15:33 04/28/19 15:33 04/28/19 15:33 Intake & Output 04/27/19 04/28/19 04/29/19 06:59 06:59 06:59 Intake Total 251.2 2855.2 1000 Output Total 200 275 Balance 51.2 2580.2 1000 Weight 61.9 kg 63.7 kg General appearance: PRESENT: no acute distress, cooperative, disheveled Respiratory exam: PRESENT: clear to auscultation mark, symmetrical, unlabored. ABSENT: accessory muscle use, crackles, prolonged expiratory phase, rhonchi, tachypnea, wheezes Cardiovascular exam: PRESENT: RRR, +S1, +S2 Pulses: PRESENT: normal carotid pulses Vascular exam: PRESENT: normal capillary refill GI/Abdominal exam: PRESENT: Hypoactive bowel sounds, soft. ABSENT: distended, guarding, rebound, tenderness Extremities exam: ABSENT: clubbing, pedal edema Musculoskeletal exam: PRESENT: normal inspection. ABSENT: deformity Neurological exam: PRESENT: alert, awake, oriented to person, oriented to place, oriented to time Psychiatric exam: PRESENT: appropriate affect, normal mood Skin exam: PRESENT: dry, warm Results Laboratory Results: 04/28/19 04:23 04/28/19 04:23 04/28/19 04/28/19 04:23 04:23 WBC 11.4 H RBC 3.18 L Hgb 10.1 L Hct 29.0 L MCV 91 MCH 31.7 MCHC 34.9 RDW 13.3 Plt Count 366 Sodium 143.6 Potassium 3.1 L Chloride 99 Carbon Dioxide 35 H Anion Gap 10 BUN 22 H Creatinine 0.71 Est GFR ( Amer) > 60 Est GFR (Non-Af Amer) > 60 Glucose 139 H Calcium 8.2 L 04/24/19 18:40 Troponin I 0.023 Impressions: Abdomen/Pelvis CT 04/24/19 00:00 IMPRESSION: 1. Findings compatible with mechanical small bowel obstruction. The transition point is not definitely identified however it likely in the right mid abdomen. 2. Small amount of free fluid. 3. Centrilobular emphysematous change in the visualized lung bases. This exam was performed according to our departmental dose-optimization program, which includes automated exposure control, adjustment of the mA and/or kV according to patient size and/or use of iterative reconstruction technique. Abdomen X-Ray 04/24/19 18:55 IMPRESSION: 1. Diffusely distended small bowel, without definite colonic gas identified. The largest loops measure 4.7 cm in caliber. Findings are consistent with stated clinical concern for obstruction. 2. There is a subtle continuous diaphragm sign on erect radiographs concerning for pneumoperitoneum. Consider CT to evaluate if there is no explanation for intra-abdominal free air such as recent surgery. KUB X-Ray 04/26/19 00:00 IMPRESSION: 1. Nasoenteric tube side port at GE junction. Consider advancing 5 cm. 2. Improved gaseous distention without definite pathologically dilated loops of bowel. Small Bowel X-Ray 04/26/19 00:00 IMPRESSION: NO EVIDENCE OF SMALL-BOWEL OBSTRUCTION. MUCOSAL THICKENING INVOLVING MAJORITY LOOPS OF JEJUNUM WITHOUT EVIDENCE OF OBSTRUCTION OR DILATATION. Assessment and Plan - Diagnosis (1) Alcoholism Is this a current diagnosis for this admission?: Yes Plan: Monitoring for signs of withdrawal, no signs thus far (2) Hypokalemia Is this a current diagnosis for this admission?: Yes Plan: Had to replace his potassium again today. (3) Hypomagnesemia Is this a current diagnosis for this admission?: Yes Plan: Resolved (4) Hyponatremia Is this a current diagnosis for this admission?: Yes Plan: Resolved. He was little hypernatremic yesterday and we switched up his fluid some and now his sodium is in the normal range. (5) Ileus Is this a current diagnosis for this admission?: Yes Plan: Surgery has advanced him to full liquids and will advance his diet to soft foods as tolerated. - Time Time Spent with patient: 15-24 minutes - Plan Summary Plan Summary: We are going to have him evaluated by physical therapy. We will see if they have any recommendations on therapy for after discharge.
[2019-04-28] MEDS: THIAMINE HCL 100 MG, FOLIC ACID 1 MG in NORMAL SALINE 250 ML IV SCH (22:09)
[2019-04-28] MEDS: ENALAPRILAT DIHYDRATE INJ/PF 1.25 MG/1 ML SDV IV PRN (23:59)
[2019-04-29] MEDS: DIAZEPAM 5 MG TABLET PO SCH ×4 (03:09→21:20)
[2019-04-29] MEDS: HEPARIN SOD (PORCINE) 5,000 UNIT/ML 1 ML SYRINGE SUBCUT SCH ×3 (06:13→21:21)
[2019-04-29] MEDS: HYDRALAZINE HCL INJ/PF 20 MG/1 ML SDV IV PRN ×2 (08:10→21:20)
[2019-04-29] MEDS: POTASSI CL 20 MEQ/1/2NS 1L 20 MEQ/1,000 ML RTUINJ IV PRN (08:14)
[2019-04-29] MEDS: IPRATROPIUM/ALBUTEROL 0.5-2.5 MG/3 ML AMPUL NEB SCH ×2 (08:20→20:46)
[2019-04-29 11:16] LABS: ANION GAP 13 (5-19); BLOOD UREA NITROGEN 17 mg/dL (7-20); CALCIUM 7.7 mg/dL (8.4-10.2); CARBON DIOXIDE 27 mmol/L (22-30); CHLORIDE 94 mmol/L (98-107); GLUCOSE 91 mg/dL (75-110); POTASSIUM 3.5 mmol/L (3.6-5.0); SODIUM 133.9 mmol/L (137-145)
[2019-04-29] MEDS: DIAZEPAM 5 MG TABLET NG SCH ×2 (14:57→20:40)
[2019-04-29] MEDS: ENALAPRILAT DIHYDRATE INJ/PF 1.25 MG/1 ML SDV IV PRN (15:04)
--- NOTE | 2019-04-29 16:09 | PDOC PROGRESS REPORT ---
Subjective Progress Note for:: 04/29/19 Subjective:: No adverse events overnight. No new complaints. Vital signs been stable. Blood pressures have been low elevated. He is been off his blood pressure medicine for a couple of days now. His appetite is not been that great. He is not yet shown any substantial signs of withdrawal. Reason For Visit: HYPONATREMIA, HYPOKALEMIA, SBO Physical Exam Vital Signs: Temp Pulse Resp BP Pulse Ox 98.1 F 90 18 177/89 H 98 04/29/19 14:46 04/29/19 14:46 04/29/19 14:46 04/29/19 14:46 04/29/19 14:46 Intake & Output 04/28/19 04/29/19 04/30/19 06:59 06:59 06:59 Intake Total 2855.2 4601 600 Output Total 275 275 Balance 2580.2 4326 600 Weight 63.7 kg 66.4 kg General appearance: PRESENT: no acute distress, cooperative, disheveled Respiratory exam: PRESENT: clear to auscultation mark, symmetrical, unlabored. ABSENT: accessory muscle use, crackles, prolonged expiratory phase, rhonchi, tachypnea, wheezes Cardiovascular exam: PRESENT: RRR, +S1, +S2 Pulses: PRESENT: normal carotid pulses Vascular exam: PRESENT: normal capillary refill GI/Abdominal exam: PRESENT: Hypoactive bowel sounds, soft. ABSENT: distended, guarding, rebound, tenderness Extremities exam: ABSENT: clubbing, pedal edema Musculoskeletal exam: PRESENT: normal inspection. ABSENT: deformity Neurological exam: PRESENT: alert, awake, oriented to person, oriented to place, oriented to time Psychiatric exam: PRESENT: appropriate affect, normal mood Skin exam: PRESENT: dry, warm Results Laboratory Results: 04/28/19 04:23 04/29/19 09:25 04/29/19 09:25 Sodium 133.9 L Potassium 3.5 L Chloride 94 L Carbon Dioxide 27 Anion Gap 13 BUN 17 Creatinine 0.74 Est GFR ( Amer) > 60 Est GFR (Non-Af Amer) > 60 Glucose 91 Calcium 7.7 L 04/24/19 18:40 Troponin I 0.023 Impressions: Abdomen/Pelvis CT 04/24/19 00:00 IMPRESSION: 1. Findings compatible with mechanical small bowel obstruction. The transition point is not definitely identified however it likely in the right mid abdomen. 2. Small amount of free fluid. 3. Centrilobular emphysematous change in the visualized lung bases. This exam was performed according to our departmental dose-optimization program, which includes automated exposure control, adjustment of the mA and/or kV according to patient size and/or use of iterative reconstruction technique. Abdomen X-Ray 04/24/19 18:55 IMPRESSION: 1. Diffusely distended small bowel, without definite colonic gas identified. The largest loops measure 4.7 cm in caliber. Findings are consistent with stated clinical concern for obstruction. 2. There is a subtle continuous diaphragm sign on erect radiographs concerning for pneumoperitoneum. Consider CT to evaluate if there is no explanation for intra-abdominal free air such as recent surgery. KUB X-Ray 04/26/19 00:00 IMPRESSION: 1. Nasoenteric tube side port at GE junction. Consider advancing 5 cm. 2. Improved gaseous distention without definite pathologically dilated loops of bowel. Small Bowel X-Ray 04/26/19 00:00 IMPRESSION: NO EVIDENCE OF SMALL-BOWEL OBSTRUCTION. MUCOSAL THICKENING INVOLVING MAJORITY LOOPS OF JEJUNUM WITHOUT EVIDENCE OF OBSTRUCTION OR DILATATION. Assessment and Plan - Diagnosis (1) Alcoholism Is this a current diagnosis for this admission?: Yes Plan: Monitoring for signs of withdrawal, no signs thus far (2) Hypokalemia Is this a current diagnosis for this admission?: Yes Plan: He keeps requiring repeated doses of potassium, magnesium is normal (3) Hypomagnesemia Is this a current diagnosis for this admission?: Yes Plan: Resolved (4) Hyponatremia Is this a current diagnosis for this admission?: Yes Plan: Resolved. He was little hypernatremic yesterday and we switched up his fluid some and now his sodium is in the normal range. (5) Ileus Is this a current diagnosis for this admission?: Yes Plan: Surgery has advanced him to full liquids and will advance his diet to soft foods as tolerated. - Time Time Spent with patient: 15-24 minutes
[2019-04-29] MEDS: LOSARTAN POTASSIUM 50 MG TABLET PO SCH (16:53)
[2019-04-29] MEDS: AMLODIPINE BESYLATE 10 MG TABLET PO SCH (16:53)
[2019-04-29] MEDS: THIAMINE HCL 100 MG, FOLIC ACID 1 MG in NORMAL SALINE 250 ML IV SCH (21:38)
[2019-04-30] MEDS: DIAZEPAM 5 MG TABLET PO SCH ×6 (01:20→21:46)
[2019-04-30] MEDS: HEPARIN SOD (PORCINE) 5,000 UNIT/ML 1 ML SYRINGE SUBCUT SCH ×3 (05:09→21:46)
[2019-04-30] MEDS: IPRATROPIUM/ALBUTEROL 0.5-2.5 MG/3 ML AMPUL NEB SCH ×2 (08:02→20:32)
[2019-04-30] MEDS: AMLODIPINE BESYLATE 10 MG TABLET PO SCH (10:00)
[2019-04-30] MEDS: LOSARTAN POTASSIUM 50 MG TABLET PO SCH (10:00)
[2019-04-30 13:33] LABS: ANION GAP 12 (5-19); BLOOD UREA NITROGEN 15 mg/dL (7-20); CALCIUM 7.9 mg/dL (8.4-10.2); CARBON DIOXIDE 29 mmol/L (22-30); CHLORIDE 92 mmol/L (98-107); GLUCOSE 129 mg/dL (75-110); SODIUM 133.2 mmol/L (137-145)
[2019-04-30 13:36] LABS: POTASSIUM 2.7 mmol/L (3.6-5.0)
--- NOTE | 2019-04-30 15:53 | PDOC PROGRESS REPORT ---
Subjective Progress Note for:: 04/30/19 Subjective:: No adverse events overnight. No new complaints. He is been resting comfortably. No nausea or vomiting. Reason For Visit: HYPONATREMIA, HYPOKALEMIA, SBO Physical Exam Vital Signs: Temp Pulse Resp BP Pulse Ox 98.0 F 110 H 16 135/80 H 94 04/30/19 11:10 04/30/19 13:54 04/30/19 11:10 04/30/19 11:10 04/30/19 11:10 Intake & Output 04/29/19 04/30/19 05/01/19 06:59 06:59 06:59 Intake Total 4601 2811.2 240 Output Total 275 Balance 4326 2811.2 240 Weight 66.4 kg 64.5 kg General appearance: PRESENT: no acute distress, cooperative, disheveled Respiratory exam: PRESENT: clear to auscultation mark, symmetrical, unlabored. ABSENT: accessory muscle use, crackles, prolonged expiratory phase, rhonchi, tachypnea, wheezes Cardiovascular exam: PRESENT: RRR, +S1, +S2 Pulses: PRESENT: normal carotid pulses Vascular exam: PRESENT: normal capillary refill GI/Abdominal exam: PRESENT: Hypoactive bowel sounds, soft. ABSENT: distended, guarding, rebound, tenderness Extremities exam: ABSENT: clubbing, pedal edema Musculoskeletal exam: PRESENT: normal inspection. ABSENT: deformity Neurological exam: PRESENT: alert, awake, oriented to person, oriented to place, oriented to time Psychiatric exam: PRESENT: appropriate affect, normal mood Skin exam: PRESENT: dry, warm Results Laboratory Results: 04/28/19 04:23 04/30/19 12:36 04/30/19 04/30/19 12:36 12:36 Sodium 133.2 L Potassium 2.7 L* Chloride 92 L Carbon Dioxide 29 Anion Gap 12 BUN 15 Creatinine 0.80 Est GFR ( Amer) > 60 Est GFR (Non-Af Amer) > 60 Glucose 129 H Calcium 7.9 L Magnesium 1.1 L* 04/24/19 18:40 Troponin I 0.023 Impressions: Abdomen/Pelvis CT 04/24/19 00:00 IMPRESSION: 1. Findings compatible with mechanical small bowel obstruction. The transition point is not definitely identified however it likely in the right mid abdomen. 2. Small amount of free fluid. 3. Centrilobular emphysematous change in the visualized lung bases. This exam was performed according to our departmental dose-optimization program, which includes automated exposure control, adjustment of the mA and/or kV according to patient size and/or use of iterative reconstruction technique. Abdomen X-Ray 04/24/19 18:55 IMPRESSION: 1. Diffusely distended small bowel, without definite colonic gas identified. The largest loops measure 4.7 cm in caliber. Findings are consistent with stated clinical concern for obstruction. 2. There is a subtle continuous diaphragm sign on erect radiographs concerning for pneumoperitoneum. Consider CT to evaluate if there is no explanation for intra-abdominal free air such as recent surgery. KUB X-Ray 04/26/19 00:00 IMPRESSION: 1. Nasoenteric tube side port at GE junction. Consider advancing 5 cm. 2. Improved gaseous distention without definite pathologically dilated loops of bowel. Small Bowel X-Ray 04/26/19 00:00 IMPRESSION: NO EVIDENCE OF SMALL-BOWEL OBSTRUCTION. MUCOSAL THICKENING INVOLVING MAJORITY LOOPS OF JEJUNUM WITHOUT EVIDENCE OF OBSTRUCTION OR DILATATION. Assessment and Plan - Diagnosis (1) Alcoholism Is this a current diagnosis for this admission?: Yes Plan: Monitoring for signs of withdrawal, no signs thus far (2) Hypokalemia Is this a current diagnosis for this admission?: Yes Plan: His magnesium is low and that needs to be replaced. We have ordered more supplemental potassium as well. (3) Hypomagnesemia Is this a current diagnosis for this admission?: Yes Plan: He once again needs a lot of magnesium. I suspect he was intracellularly depleted and what we're giving him just keeps getting sucked back up into his cells until he reaches equilibrium. (4) Hyponatremia Is this a current diagnosis for this admission?: Yes Plan: Sodium stable around 133 (5) Ileus Is this a current diagnosis for this admission?: Yes Plan: Resolved. Advancing diet as tolerated. - Time Time Spent with patient: 15-24 minutes - Plan Summary Plan Summary: If we can have her get his electrolytes to completely correct, the plan is to send him home with home health and physical therapy.
[2019-04-30] MEDS: POTASSI CL 20 MEQ/50 ML RIDER 20 MEQ/50 ML RTUPB IV SCH ×3 (16:20→19:58)
[2019-04-30] MEDS: MAGNESIUM SULFATE/D5W 1 GM/100 ML RTUPB IV SCH ×3 (16:20→18:51)
[2019-04-30] MEDS: HYDRALAZINE HCL INJ/PF 20 MG/1 ML SDV IV PRN (19:58)
[2019-04-30] MEDS: THIAMINE HCL 100 MG, FOLIC ACID 1 MG in NORMAL SALINE 250 ML IV SCH (21:46)
[2019-05-01] MEDS: DIAZEPAM 5 MG TABLET PO SCH ×6 (01:52→21:31)
[2019-05-01 02:36] LABS: ALANINE AMINOTRANSFERASE 36 U/L (21-72); ALBUMIN 3.1 g/dL (3.5-5.0); ALKALINE PHOSPHATASE 45 U/L (38-126); ANION GAP 12 (5-19); ASPARTATE AMINO TRANSFERASE 46 U/L (17-59); BILIRUBIN,DIRECT 0.5 mg/dL (0.0-0.4); BLOOD UREA NITROGEN 12 mg/dL (7-20); CALCIUM 7.7 mg/dL (8.4-10.2); CARBON DIOXIDE 29 mmol/L (22-30); CHLORIDE 96 mmol/L (98-107); GLUCOSE 107 mg/dL (75-110); SODIUM 136.7 mmol/L (137-145); TOTAL PROTEIN 5.6 g/dL (6.3-8.2)
[2019-05-01 02:39] LABS: POTASSIUM 2.7 mmol/L (3.6-5.0)
[2019-05-01] MEDS: POTASSIUM CHLORIDE 20 MEQ/50 ML RTU IV SCH ×3 (03:14→07:35)
[2019-05-01] MEDS: HEPARIN SOD (PORCINE) 5,000 UNIT/ML 1 ML SYRINGE SUBCUT SCH ×3 (05:06→21:32)
[2019-05-01] MEDS: IPRATROPIUM/ALBUTEROL 0.5-2.5 MG/3 ML AMPUL NEB SCH ×2 (08:43→20:51)
[2019-05-01] MEDS: AMLODIPINE BESYLATE 10 MG TABLET PO SCH (09:21)
[2019-05-01] MEDS: LOSARTAN POTASSIUM 50 MG TABLET PO SCH (09:21)
[2019-05-01] MEDS: MAGNESIUM SULFATE/D5W 1 GM/100 ML RTUPB IV SCH ×2 (09:21→10:54)
[2019-05-01 15:31] LABS: ALANINE AMINOTRANSFERASE 39 U/L (21-72); ALBUMIN 3.2 g/dL (3.5-5.0); ALKALINE PHOSPHATASE 45 U/L (38-126); ANION GAP 11 (5-19); ASPARTATE AMINO TRANSFERASE 40 U/L (17-59); BILIRUBIN,DIRECT 0.4 mg/dL (0.0-0.4); BILIRUBIN,TOTAL 0.7 mg/dL (0.2-1.3); BLOOD UREA NITROGEN 12 mg/dL (7-20); CALCIUM 7.8 mg/dL (8.4-10.2); CARBON DIOXIDE 28 mmol/L (22-30); CHLORIDE 96 mmol/L (98-107); GLUCOSE 108 mg/dL (75-110); POTASSIUM 3.3 mmol/L (3.6-5.0); SODIUM 134.6 mmol/L (137-145); TOTAL PROTEIN 5.6 g/dL (6.3-8.2)
--- NOTE | 2019-05-01 16:36 | PDOC PROGRESS REPORT ---
Subjective Progress Note for:: 05/01/19 Subjective:: No adverse events overnight. No new complaints. Vital signs been stable. Eating and drinking without difficulty, but his appetite is not been very good. No diarrhea. Reason For Visit: HYPONATREMIA, HYPOKALEMIA, SBO Physical Exam Vital Signs: Temp Pulse Resp BP Pulse Ox 97.6 F 86 20 163/82 H 94 05/01/19 11:09 05/01/19 14:00 05/01/19 11:09 05/01/19 11:09 05/01/19 11:09 Intake & Output 04/30/19 05/01/19 05/02/19 06:59 06:59 06:59 Intake Total 2811.2 1651.2 700 Output Total 500 Balance 2811.2 1151.2 700 Weight 64.5 kg 63.3 kg General appearance: PRESENT: no acute distress, cooperative, disheveled Respiratory exam: PRESENT: clear to auscultation mark, symmetrical, unlabored. ABSENT: accessory muscle use, crackles, prolonged expiratory phase, rhonchi, tachypnea, wheezes Cardiovascular exam: PRESENT: RRR, +S1, +S2 Pulses: PRESENT: normal carotid pulses Vascular exam: PRESENT: normal capillary refill GI/Abdominal exam: PRESENT: Hypoactive bowel sounds, soft. ABSENT: distended, guarding, rebound, tenderness Extremities exam: ABSENT: clubbing, pedal edema Musculoskeletal exam: PRESENT: normal inspection. ABSENT: deformity Neurological exam: PRESENT: alert, awake, oriented to person, oriented to place, oriented to time Psychiatric exam: PRESENT: appropriate affect, normal mood Skin exam: PRESENT: dry, warm Results Laboratory Results: 04/28/19 04:23 05/01/19 14:31 05/01/19 05/01/19 02:08 14:31 Sodium 136.7 L 134.6 L Potassium 2.7 L* 3.3 L Chloride 96 L 96 L Carbon Dioxide 29 28 Anion Gap 12 11 BUN 12 12 Creatinine 0.73 0.75 Est GFR ( Amer) > 60 > 60 Est GFR (Non-Af Amer) > 60 > 60 Glucose 107 108 Calcium 7.7 L 7.8 L Magnesium 1.5 L Total Bilirubin 1.0 0.7 AST 46 40 ALT 36 39 Alkaline Phosphatase 45 45 Total Protein 5.6 L 5.6 L Albumin 3.1 L 3.2 L 04/24/19 18:40 Troponin I 0.023 Impressions: Abdomen/Pelvis CT 04/24/19 00:00 IMPRESSION: 1. Findings compatible with mechanical small bowel obstruction. The transition point is not definitely identified however it likely in the right mid abdomen. 2. Small amount of free fluid. 3. Centrilobular emphysematous change in the visualized lung bases. This exam was performed according to our departmental dose-optimization program, which includes automated exposure control, adjustment of the mA and/or kV according to patient size and/or use of iterative reconstruction technique. Abdomen X-Ray 04/24/19 18:55 IMPRESSION: 1. Diffusely distended small bowel, without definite colonic gas identified. The largest loops measure 4.7 cm in caliber. Findings are consistent with stated clinical concern for obstruction. 2. There is a subtle continuous diaphragm sign on erect radiographs concerning for pneumoperitoneum. Consider CT to evaluate if there is no explanation for intra-abdominal free air such as recent surgery. KUB X-Ray 04/26/19 00:00 IMPRESSION: 1. Nasoenteric tube side port at GE junction. Consider advancing 5 cm. 2. Improved gaseous distention without definite pathologically dilated loops of bowel. Small Bowel X-Ray 04/26/19 00:00 IMPRESSION: NO EVIDENCE OF SMALL-BOWEL OBSTRUCTION. MUCOSAL THICKENING INVOLVING MAJORITY LOOPS OF JEJUNUM WITHOUT EVIDENCE OF OBSTRUCTION OR DILATATION. Assessment and Plan - Diagnosis (1) Alcoholism Is this a current diagnosis for this admission?: Yes Plan: Monitoring for signs of withdrawal, no signs thus far (2) Hypokalemia Is this a current diagnosis for this admission?: Yes Plan: He was low again this morning and had a low magnesium so we replaced both of these IV. Potassium is come up to now works near normal. We will give another oral supplement. (3) Hypomagnesemia Is this a current diagnosis for this admission?: Yes Plan: Now resolved. Was 1.5 this morning and we gave him 2 more grams of magnesium sulfate. (4) Hyponatremia Is this a current diagnosis for this admission?: Yes Plan: Sodium stable around 133 (5) Ileus Is this a current diagnosis for this admission?: Yes Plan: Resolved. Advancing diet as tolerated. - Time Time Spent with patient: 15-24 minutes - Plan Summary Plan Summary: Once his electrolytes are corrected, he can be discharged home with home health and physical therapy.
[2019-05-01] MEDS ORDERED: POTASSIUM CHLORIDE 10 MEQ CAPSULE.ER PO ONE (17:00)
[2019-05-01] MEDS: CALCIUM CARBONATE 250 MG/VITAMIN D3 125 UNIT TABLET PO SCH (17:18)
[2019-05-01] MEDS: THIAMINE HCL 100 MG, FOLIC ACID 1 MG in NORMAL SALINE 250 ML IV SCH (21:32)
[2019-05-02] MEDS: DIAZEPAM 5 MG TABLET PO SCH ×6 (02:16→21:25)
[2019-05-02] MEDS: HYDRALAZINE HCL INJ/PF 20 MG/1 ML SDV IV PRN ×2 (03:28→23:47)
[2019-05-02] MEDS: HEPARIN SOD (PORCINE) 5,000 UNIT/ML 1 ML SYRINGE SUBCUT SCH ×3 (05:07→21:25)
[2019-05-02] MEDS: IPRATROPIUM/ALBUTEROL 0.5-2.5 MG/3 ML AMPUL NEB SCH ×2 (08:21→20:54)
[2019-05-02] MEDS: LOSARTAN POTASSIUM 50 MG TABLET PO SCH (10:07)
[2019-05-02] MEDS: AMLODIPINE BESYLATE 10 MG TABLET PO SCH (10:08)
[2019-05-02] MEDS: CALCIUM CARBONATE 250 MG/VITAMIN D3 125 UNIT TABLET PO SCH ×2 (10:09→18:09)
--- NOTE | 2019-05-02 18:39 | PDOC PROGRESS REPORT ---
Subjective Progress Note for:: 05/02/19 Subjective:: This is a 68 years old male patient with past medical history of hypertension, COPD, chronic her hyponatremia and alcohol dependence presented with chief complaint of abdominal pain and distention. States that he has had diarrhea for about 2 weeks and later he started to have vomiting of greenish- yellow ingested material. CT scan of the abdomen is concerning for small bowel obstruction. Work shows hyponatremia of 119, hypokalemia of 2.3 and hypomagnes emia. Ventilation status subsided and his potassium is being repleted. Patient is debilitated conditions and he qualifies for rehab placement for less than 30 days. Reason For Visit: HYPONATREMIA, HYPOKALEMIA, SBO Physical Exam Vital Signs: Temp Pulse Resp BP Pulse Ox 98.2 F 92 18 146/78 H 94 05/02/19 15:18 05/02/19 15:18 05/02/19 15:18 05/02/19 15:18 05/02/19 15:18 Intake & Output 05/01/19 05/02/19 05/03/19 06:59 06:59 06:59 Intake Total 1651.2 1551.2 718 Output Total 500 575 Balance 1151.2 1551.2 143 Weight 63.3 kg 62.5 kg Results Laboratory Results: 04/28/19 04:23 05/01/19 14:31 04/24/19 18:40 Troponin I 0.023 Impressions: Abdomen/Pelvis CT 04/24/19 00:00 IMPRESSION: 1. Findings compatible with mechanical small bowel obstruction. The transition point is not definitely identified however it likely in the right mid abdomen. 2. Small amount of free fluid. 3. Centrilobular emphysematous change in the visualized lung bases. This exam was performed according to our departmental dose-optimization program, which includes automated exposure control, adjustment of the mA and/or kV according to patient size and/or use of iterative reconstruction technique. Abdomen X-Ray 04/24/19 18:55 IMPRESSION: 1. Diffusely distended small bowel, without definite colonic gas identified. The largest loops measure 4.7 cm in caliber. Findings are consistent with stated clinical concern for obstruction. 2. There is a subtle continuous diaphragm sign on erect radiographs concerning for pneumoperitoneum. Consider CT to evaluate if there is no explanation for intra-abdominal free air such as recent surgery. KUB X-Ray 04/26/19 00:00 IMPRESSION: 1. Nasoenteric tube side port at GE junction. Consider advancing 5 cm. 2. Improved gaseous distention without definite pathologically dilated loops of bowel. Small Bowel X-Ray 04/26/19 00:00 IMPRESSION: NO EVIDENCE OF SMALL-BOWEL OBSTRUCTION. MUCOSAL THICKENING INVOLVING MAJORITY LOOPS OF JEJUNUM WITHOUT EVIDENCE OF OBSTRUCTION OR DILATATION. Assessment and Plan - Diagnosis (1) Hypokalemia Is this a current diagnosis for this admission?: Yes Plan: Is being repleted. (2) Hyponatremia Is this a current diagnosis for this admission?: Yes Plan: His sodium was 119 and today 136. (3) Hypomagnesemia Is this a current diagnosis for this admission?: Yes Plan: Improving (4) Abdominal pain, vomiting, and diarrhea Is this a current diagnosis for this admission?: Yes Plan: Has subsided (5) COPD (chronic obstructive pulmonary disease) Qualifiers: Emphysema type: unspecified Is this a current diagnosis for this admission?: Yes Plan: Continue current regimen (6) Alcohol dependence Is this a current diagnosis for this admission?: Yes Plan: Patient encouraged and advised to remain sober.
[2019-05-02] MEDS: THIAMINE HCL 100 MG, FOLIC ACID 1 MG in NORMAL SALINE 250 ML IV SCH (21:25)
[2019-05-03] MEDS: DIAZEPAM 5 MG TABLET PO SCH ×6 (01:34→21:29)
[2019-05-03] MEDS: HEPARIN SOD (PORCINE) 5,000 UNIT/ML 1 ML SYRINGE SUBCUT SCH ×3 (05:52→21:30)
[2019-05-03 06:29] LABS: ANION GAP 10 (5-19); BLOOD UREA NITROGEN 13 mg/dL (7-20); CALCIUM 8.2 mg/dL (8.4-10.2); CARBON DIOXIDE 29 mmol/L (22-30); CHLORIDE 98 mmol/L (98-107); GLUCOSE 92 mg/dL (75-110); POTASSIUM 3.1 mmol/L (3.6-5.0); SODIUM 137.1 mmol/L (137-145)
[2019-05-03] MEDS: MAGNESIUM SULFATE/D5W 1 GM/100 ML RTUPB IV SCH ×3 (08:34→11:11)
[2019-05-03] MEDS: IPRATROPIUM/ALBUTEROL 0.5-2.5 MG/3 ML AMPUL NEB SCH ×2 (08:55→20:56)
[2019-05-03] MEDS: LOSARTAN POTASSIUM 50 MG TABLET PO SCH (09:40)
[2019-05-03] MEDS: AMLODIPINE BESYLATE 10 MG TABLET PO SCH (09:40)
[2019-05-03] MEDS: CALCIUM CARBONATE 250 MG/VITAMIN D3 125 UNIT TABLET PO SCH ×2 (09:41→17:09)
[2019-05-03] MEDS ORDERED: (PENDING PHARMACY ID) (Risperidone [Risperdal] 0.5 MG) PO PRN (12:10)
[2019-05-03] MEDS ORDERED: (PENDING PHARMACY ID) (Sertraline Hcl [Zoloft] 200 MG) PO SCH (12:15)
[2019-05-03] MEDS ORDERED: RISPERIDONE 0.25 MG TABLET PO PRN (12:22)
[2019-05-03] MEDS ORDERED: LORAZEPAM 1 MG TABLET PO SCH (14:00)
--- NOTE | 2019-05-03 15:15 | PDOC PROGRESS REPORT ---
Subjective Progress Note for:: 05/03/19 Subjective:: Patient seen resting in bed comfortably. He is awake alert and oriented. His labs are reviewed patient still has mild hypokalemia with potassium 3.1 and severe hypomagnesemia with go with magnesium of 1.1. He is getting magnesium rider and I started him also on p.o. magnesium oxide. Patient initially agree to be placed in rehab but now he refused and he wants to go home. Reason For Visit: HYPONATREMIA, HYPOKALEMIA, SBO Physical Exam Vital Signs: Temp Pulse Resp BP Pulse Ox 97.3 F 99 17 148/74 H 92 05/03/19 11:24 05/03/19 14:00 05/03/19 11:24 05/03/19 11:24 05/03/19 11:24 Intake & Output 05/02/19 05/03/19 05/04/19 06:59 06:59 06:59 Intake Total 1551.2 1169.2 200 Output Total 950 Balance 1551.2 219.2 200 Weight 62.5 kg 61.7 kg General appearance: PRESENT: no acute distress Head exam: PRESENT: atraumatic Eye exam: PRESENT: conjunctiva pink Neck exam: ABSENT: carotid bruit, JVD, lymphadenopathy, thyromegaly Respiratory exam: PRESENT: clear to auscultation mark. ABSENT: rales, rhonchi, wheezes Cardiovascular exam: PRESENT: RRR. ABSENT: diastolic murmur, rubs, systolic murmur GI/Abdominal exam: PRESENT: normal bowel sounds, soft. ABSENT: distended, guarding, mass, organolmegaly, rebound, tenderness Neurological exam: PRESENT: alert, awake, oriented to time, oriented to situation Results Laboratory Results: 04/28/19 04:23 05/03/19 05:24 05/03/19 05:24 Sodium 137.1 Potassium 3.1 L Chloride 98 Carbon Dioxide 29 Anion Gap 10 BUN 13 Creatinine 0.80 Est GFR ( Amer) > 60 Est GFR (Non-Af Amer) > 60 Glucose 92 Calcium 8.2 L Magnesium 1.1 L* 04/24/19 18:40 Troponin I 0.023 Impressions: Abdomen/Pelvis CT 04/24/19 00:00 IMPRESSION: 1. Findings compatible with mechanical small bowel obstruction. The transition point is not definitely identified however it likely in the right mid abdomen. 2. Small amount of free fluid. 3. Centrilobular emphysematous change in the visualized lung bases. This exam was performed according to our departmental dose-optimization program, which includes automated exposure control, adjustment of the mA and/or kV according to patient size and/or use of iterative reconstruction technique. Abdomen X-Ray 04/24/19 18:55 IMPRESSION: 1. Diffusely distended small bowel, without definite colonic gas identified. The largest loops measure 4.7 cm in caliber. Findings are consistent with stated clinical concern for obstruction. 2. There is a subtle continuous diaphragm sign on erect radiographs concerning for pneumoperitoneum. Consider CT to evaluate if there is no explanation for in tra-abdominal free air such as recent surgery. KUB X-Ray 04/26/19 00:00 IMPRESSION: 1. Nasoenteric tube side port at GE junction. Consider advancing 5 cm. 2. Improved gaseous distention without definite pathologically dilated loops of bowel. Small Bowel X-Ray 04/26/19 00:00 IMPRESSION: NO EVIDENCE OF SMALL-BOWEL OBSTRUCTION. MUCOSAL THICKENING INVOLVING MAJORITY LOOPS OF JEJUNUM WITHOUT EVIDENCE OF OBSTRUCTION OR DILATATION. Assessment and Plan - Diagnosis (1) Hypokalemia Is this a current diagnosis for this admission?: Yes Plan: Improving but still low. (2) Hyponatremia Is this a current diagnosis for this admission?: Yes Plan: Resolved (3) Hypomagnesemia Is this a current diagnosis for this admission?: Yes Plan: His magnesium level is still very low. We will replete and check his magnesium level in a.m. Patient has been started on magnesium oxide supplement. (4) Abdominal pain, vomiting, and diarrhea Is this a current diagnosis for this admission?: Yes Plan: Has subsided (5) COPD (chronic obstructive pulmonary disease) Qualifiers: Emphysema type: unspecified Is this a current diagnosis for this admission?: Yes Plan: Continue current regimen (6) Alcohol dependence Is this a current diagnosis for this admission?: Yes Plan: Patient encouraged and advised to remain sober.
[2019-05-03 15:43] LABS: ABSOLUTE MONOCYTES (AUTO) 0.8 10^3/uL (0.1-1.4); ABSOLUTE NEUT (AUTO) 6.4 10^3/uL (1.7-8.2); BASOPHILS % (AUTO) 0.2 % (0-2); EOSINOPHILS % (AUTO) 0.3 % (0-6); HEMATOCRIT 30.9 % (37.9-51.0); HEMOGLOBIN 10.8 g/dL (13.5-17.0); LYMPHOCYTES % (AUTO) 12.5 % (13-45); MEAN CORPUSCULAR HEMOGLOBIN 31.6 pg (27.0-33.4); MEAN CORPUSCULAR VOLUME 90 fl (80-97); MONOCYTES % (AUTO) 9.8 % (3-13); PLATELET COUNT 344 10^3/uL (150-450); RED BLOOD COUNT 3.42 10^6/uL (4.35-5.55); RED CELL DISTRIBUTION WIDTH 13.5 % (11.5-14.0); SEGMENTED NEUTROPHILS % (AUTO) 77.2 % (42-78); TOTAL CELLS COUNTED % (AUTO) 100 %; WHITE BLOOD COUNT 8.2 10^3/uL (4.0-10.5)
[2019-05-03] MEDS ORDERED: POTASSIUM CHLORIDE 10 MEQ CAPSULE.ER PO ONE (16:00)
[2019-05-03 16:47] LABS: ANION GAP 9 (5-19); BLOOD UREA NITROGEN 13 mg/dL (7-20); CALCIUM 8.6 mg/dL (8.4-10.2); CARBON DIOXIDE 30 mmol/L (22-30); CHLORIDE 95 mmol/L (98-107); GLUCOSE 106 mg/dL (75-110); SODIUM 133.5 mmol/L (137-145)
[2019-05-03] MEDS: MAGNESIUM OXIDE 400 MG TABLET PO SCH (17:09)
[2019-05-03] MEDS: SERTRALINE HCL 50 MG TABLET PO SCH (17:15)
[2019-05-03] MEDS: THIAMINE HCL 100 MG, FOLIC ACID 1 MG in NORMAL SALINE 250 ML IV SCH (21:30)
[2019-05-03] MEDS: VERAPAMIL HCL 180 MG TABLET.SA PO SCH (21:30)
[2019-05-03] MEDS ORDERED: RISPERIDONE 1 MG TABLET PO SCH (22:00)
[2019-05-03] MEDS ORDERED: HYDRALAZINE HCL 25 MG TABLET PO SCH (22:00)
[2019-05-04] MEDS: DIAZEPAM 5 MG TABLET PO SCH ×4 (02:11→16:44)
[2019-05-04] MEDS: HEPARIN SOD (PORCINE) 5,000 UNIT/ML 1 ML SYRINGE SUBCUT SCH ×2 (05:02→16:43)
[2019-05-04 06:12] LABS: ANION GAP 12 (5-19); BLOOD UREA NITROGEN 12 mg/dL (7-20); CALCIUM 8.8 mg/dL (8.4-10.2); CARBON DIOXIDE 26 mmol/L (22-30); CHLORIDE 101 mmol/L (98-107); GLUCOSE 102 mg/dL (75-110); POTASSIUM 3.1 mmol/L (3.6-5.0); SODIUM 138.9 mmol/L (137-145)
[2019-05-04] MEDS ORDERED: POTASSIUM CHLORIDE 10 MEQ CAPSULE.ER PO ONE (08:46)
--- NOTE | 2019-05-04 08:52 | PDOC DISCHARGE SUMMARY ---
General - Admit/Disc Date/PCP Admission Date/Primary Care Provider: 04/25/19 01:11 [facility] Discharge Date: 05/04/19 - Discharge Diagnosis (1) Hypokalemia Is this a current diagnosis for this admission?: Yes (2) Hyponatremia Is this a current diagnosis for this admission?: Yes (3) Hypomagnesemia Is this a current diagnosis for this admission?: Yes (4) Abdominal pain, vomiting, and diarrhea Is this a current diagnosis for this admission?: Yes (5) COPD (chronic obstructive pulmonary disease) Is this a current diagnosis for this admission?: Yes (6) Alcohol dependence Is this a current diagnosis for this admission?: Yes - Additional Information Resuscitation Status: Full Code Home Medications: Fenofibrate Nanocrystallized [Tricor 145 mg Tablet] 145 mg PO DAILY 04/25/19 Hydralazine HCl [Apresoline 25 mg Tablet] 25 mg PO QHS 04/25/19 Lorazepam [Ativan 1 mg Tablet] 1 mg PO Q8 04/25/19 Losartan Potassium [Cozaar 100 mg Tablet] 100 mg PO DAILY 04/25/19 Risperidone [Risperdal 1 mg Tablet] 1 mg PO QHS 04/25/19 Risperidone [Risperdal] 0.5 mg PO DAILYP PRN 04/25/19 Sertraline HCl [Zoloft] 200 mg PO DAILY 04/25/19 Verapamil HCl [Calan Sr 180 mg Tablet.sa] 180 mg PO BID 04/25/19 History of Present Illness History of Present Illness: ARDEN CAMP is a 68 year old male Hospital Course Hospital Course: This is a 68 years old male patient with past medical history of hypertension, COPD, chronic her hyponatremia and alcohol dependence presented with chief complaint of abdominal pain and distention. States that he has had diarrhea for about 2 weeks and later he started to have vomiting of greenish- yellow ingested material. CT scan of the abdomen is concerning for small bowel obstruction. Work shows hyponatremia of 119, hypokalemia of 2.3 and hypomagnesemia. His sodium is normalized. But his potassium and magnesium level still mildly low. I will give him stat dose of Klor-Con 80 mEq p.o. stat and IV magnesium 4 g and send him home with magnesium oxide and 10 mEq p.o. daily of potassium supplement. Otherwise patient is clinically stable and good to go home. Physical Exam Vital Signs: Temp Pulse Resp BP Pulse Ox 97.6 F 77 20 142/75 H 94 05/04/19 03:57 05/04/19 03:57 05/04/19 03:57 05/04/19 03:57 05/04/19 03:57 Intake & Output 05/03/19 05/04/19 05/05/19 06:59 06:59 06:59 Intake Total 1169.2 1151 Output Total 950 1180 Balance 219.2 -29 Weight 61.7 kg 60.8 kg General appearance: PRESENT: thin Eye exam: PRESENT: conjunctiva pink Mouth exam: PRESENT: moist Neck exam: ABSENT: carotid bruit, JVD, lymphadenopathy, thyromegaly Respiratory exam: PRESENT: clear to auscultation mark. ABSENT: rales, rhonchi, wheezes Cardiovascular exam: PRESENT: RRR. ABSENT: diastolic murmur, rubs, systolic murmur GI/Abdominal exam: PRESENT: normal bowel sounds, soft. ABSENT: distended, guarding, mass, organolmegaly, rebound, tenderness Neurological exam: PRESENT: alert, awake, oriented to time, oriented to situation Results Laboratory Results: 05/03/19 15:14 05/04/19 05:31 05/03/19 05/03/19 05/03/19 15:14 15:14 15:14 WBC 8.2 RBC 3.42 L Hgb 10.8 L Hct 30.9 L MCV 90 MCH 31.6 MCHC 35.0 RDW 13.5 Plt Count 344 Seg Neutrophils % 77.2 Lymphocytes % 12.5 L Monocytes % 9.8 Eosinophils % 0.3 Basophils % 0.2 Absolute Neutrophils 6.4 Absolute Lymphocytes 1.0 Absolute Monocytes 0.8 Absolute Eosinophils 0.0 Absolute Basophils 0.0 Sodium 133.5 L Potassium 3.0 L* Chloride 95 L Carbon Dioxide 30 Anion Gap 9 BUN 13 Creatinine 0.85 Est GFR ( Amer) > 60 Est GFR (Non-Af Amer) > 60 Glucose 106 Calcium 8.6 Magnesium 1.8 05/04/19 05:31 WBC RBC Hgb Hct MCV MCH MCHC RDW Plt Count Seg Neutrophils % Lymphocytes % Monocytes % Eosinophils % Basophils % Absolute Neutrophils Absolute Lymphocytes Absolute Monocytes Absolute Eosinophils Absolute Basophils Sodium 138.9 Potassium 3.1 L Chloride 101 Carbon Dioxide 26 Anion Gap 12 BUN 12 Creatinine 0.80 Est GFR ( Amer) > 60 Est GFR (Non-Af Amer) > 60 Glucose 102 Calcium 8.8 Magnesium 1.4 L 04/24/19 18:40 Troponin I 0.023 Impressions: Abdomen/Pelvis CT 04/24/19 00:00 IMPRESSION: 1. Findings compatible with mechanical small bowel obstruction. The transition point is not definitely identified however it likely in the right mid abdomen. 2. Small amount of free fluid. 3. Centrilobular emphysematous change in the visualized lung bases. This exam was performed according to our departmental dose-optimization program, which includes automated exposure control, adjustment of the mA and/or kV according to patient size and/or use of iterative reconstruction technique. Abdomen X-Ray 04/24/19 18:55 IMPRESSION: 1. Diffusely distended small bowel, without definite colonic gas identified. The largest loops measure 4.7 cm in caliber. Findings are co nsistent with stated clinical concern for obstruction. 2. There is a subtle continuous diaphragm sign on erect radiographs concerning for pneumoperitoneum. Consider CT to evaluate if there is no explanation for intra-abdominal free air such as recent surgery. KUB X-Ray 04/26/19 00:00 IMPRESSION: 1. Nasoenteric tube side port at GE junction. Consider advancing 5 cm. 2. Improved gaseous distention without definite pathologically dilated loops of bowel. Small Bowel X-Ray 04/26/19 00:00 IMPRESSION: NO EVIDENCE OF SMALL-BOWEL OBSTRUCTION. MUCOSAL THICKENING INVOLVING MAJORITY LOOPS OF JEJUNUM WITHOUT EVIDENCE OF OBSTRUCTION OR DI LATATION. Qualifiers - * PATIENT BEING DISCHARGED WITH ANY OF THE FOLLOWING DIAGNOSIS: No Acute Heart Failure Is this a Heart Failure Patient?: No
[2019-05-04] MEDS ORDERED: MAGNESIUM SULFATE 4 GM/100 ML RTUPB IV ONE (09:30)
[2019-05-04] MEDS ORDERED: LOSARTAN POTASSIUM 50 MG TABLET PO SCH (10:00)
[2019-05-04] MEDS ORDERED: FENOFIBRATE NANOCRYSTALLIZED 145 MG TABLET PO SCH (10:00)
[2019-05-04] MEDS: LOSARTAN POTASSIUM 50 MG TABLET PO SCH (10:25)
[2019-05-04] MEDS: MAGNESIUM OXIDE 400 MG TABLET PO SCH (10:26)
[2019-05-04] MEDS: SERTRALINE HCL 50 MG TABLET PO SCH (10:26)
[2019-05-04] MEDS: VERAPAMIL HCL 180 MG TABLET.SA PO SCH (10:26)
[2019-05-04] MEDS: AMLODIPINE BESYLATE 10 MG TABLET PO SCH (10:26)
[2019-05-04] MEDS: CALCIUM CARBONATE 250 MG/VITAMIN D3 125 UNIT TABLET PO SCH (10:26)
[2019-05-04 15:35] VITALS: BP 152/80
== END 2019-05-04 16:44 | disposition home health service (06) | DRG 389 ==
LOC: ER 18:20 → EH 04-25 01:11 → 3S 04-25 03:30
PROVIDERS: ADMIT Internal Medicine; ATTEND Internal Medicine
PROC: 0D9670Z Drainage of Stomach with Drainage Device, Via Natural or Artificial Opening (ICD-10-PCS; principal; 2019-04-25)
DX: K56.609 Unspecified intestinal obstruction, unspecified as to partial versus complete obstruction (principal); E87.1 Hypo-osmolality and hyponatremia; E87.6 Hypokalemia; E83.42 Hypomagnesemia; J44.9 Chronic obstructive pulmonary disease, unspecified; I10 Essential (primary) hypertension; F10.20 Alcohol dependence, uncomplicated; F43.10 Post-traumatic stress disorder, unspecified; F32.9 Major depressive disorder, single episode, unspecified; E86.0 Dehydration
CPT/HCPCS: 36415; 74018; 74019; 74177; 74250; 80048; 80053; 80307; 81001; 82803; 82962; 83605; 83690; 83735; 83930; 83935; 84100; 84133; 84300; 84484; 85025; 85027; 93005; 93010; 94640; 96361; 96365; 96366; 96368; 96375; 99291; J0360; J0610; J1644; J2060; J2250; J2405; J2765; J3360; J3411; J3475; J3480; J3490; J7030; J7050; J7060; J7620